=== PATIENT | male | born 1975 | race Caucasian/White ===

== ENCOUNTER 2022-03-23 19:36 | Emergency (ER) | payer BC, SELFPAY ==
[2022-03-23 20:06] VITALS: BP 134/78; PULSE 93; RESP 16; TEMP 37.7; O2SAT 98; BMI 29.6
--- NOTE | 2022-03-23 20:18 | XR_ITS ---
Patient: JARETH GOVEA Facility:?[facility] Patient ID:?[id number] Site Patient ID:?[id number]. Site :?[id number] Study:?XRay-Chest PORTABLE-03/23/2022 8:51:57 PM Ordering Physician:Haritha Davis Final Report: INDICATION: Fever and chills. TECHNIQUE: Sitting portable portable AP image of the chest. COMPARISON: 02/22/2021. FINDINGS: No significant change in comparison to the previous exam. Lungs and pleural spaces clear. Heart, mediastinum, and pulmonary vessels within normal limits. No significant bony abnormality. IMPRESSION: No significant change. No active disease. Dictated by Darin Bhat MD @ 03/23/2022 9:20:03 PM Signed by:?Darin Bhat MD @03/23/2022 9:20:03 PM (Electronic Signature)
--- NOTE | 2022-03-23 20:23 | ED.GENADULT ---
HPI - General Adult General Time Seen by Provider: 19:55 Date Seen: 03/23/22 Chief complaint: Cough Stated complaint: Fever, cough, possible sepsis Time Seen by Provider: 03/23/22 19:45 Source: patient and family Mode of arrival: ambulatory Limitations: no limitations History of Present Illness HPI narrative: Patient presents today with concern for chills, body aches, and some confusion. Symptoms started 2 days ago. He has had alternating chills and subjective fever, with occasional sweats. Decreased appetite. No nasal congestion, started having a slight cough today. No chest pain or shortness of breath. No abdominal pain. Had not had a bowel movement for couple of days but did have a bowel movement today which was normal, no diarrhea. Decreased urine output although initially when he started feeling poorly he said he got up 3 times during the night and had large volume output. No increased thirst. Fatigued and slept most of today. Also notes that 2 days ago when he was starting to get sick, he had an episode after work where he fell asleep in his truck while parked. called him and woke him up and he was confused, did not know that he was still working thought he was at home. He has not been taking anything for his symptoms. He did have COVID about 8 months ago, he is not vaccinated. And also known kidney stones. Related Data Previous Rx's Medication Instructions Recorded cefdinir 300 mg capsule 300 mg PO BID 10 days #20 caps 03/23/22 Allergies Allergy/AdvReac Type Severity Reaction Status Date / Time No Known Allergies Allergy Verified 03/23/22 20:13 Review of Systems Status of ROS: Reports: 10 or more systems reviewed and unremarkable except as noted in History and below PFSH [facility] Social History Smoking Status: Never smoker Do you use any of these nicotine containing products: None Second hand tobacco smoke exposure: No How often do you have a drink containing alcohol: never How often do you have six or more drinks on one occasion: Never AUDIT-C Alcohol total score: 0 Non-prescribed substance use: denies use service: No Exam Const: Vital Signs, click to edit/add: Vital Signs - 24 hr 03/23/22 20:06 Temperature 99.8 F H Pulse Rate [Right Pulse Oximeter] 93 Respiratory Rate 16 Blood Pressure [Ri ght Upper Arm] 134/78 Pulse Oximetry 98 Oxygen Delivery Me thod Room Air Documenting provider has reviewed patient's vital signs: yes Common normals: no apparent distress, oriented x3, alert and well nourished HENMT: Common normals: normocephalic, head/scalp atraumatic, external ears normal and external nose normal Head and scalp: normocephalic and atraumatic Nose: external nose normal External ear: external ears normal Eye: Common normals: PERRL and conjunctivae normal Conjunctiva: conjunctiva(e) normal Pupil: PERRL Neck & C-Spine: Common normals: full ROM, no lymphadenopathy and supple Chest: Common normals: palpation of chest normal Resp: Common normals: normal respiratory effort Other: Crackles in the right base Cardio: Common normals: regular rate, regular rhythm and no murmurs Rate: regular rate Rhythm: regular rhythm GI: Common normals: Normal to inspection, nondistended, normoactive bowel sounds present, soft to palpation and non-tender Palpation: soft : Common normals: no CVA tenderness Bladder/kidney exam: no CVA tenderness Back & Pelvis: Common normals: no CVA tenderness and thoracic and lumbar spine normal to inspection Extremity: Common normals: normal to inspection, full ROM and no pedal edema Neuro: Common normals: oriented x3, CN's II-XII intact bilaterally and no focal motor deficits Sensorium/orientation: alert Psych: Common normals: mental status grossly normal Skin: Common normals: no rashes or lesions noted General skin exam: no rashes or lesions noted Course Course Hospital Course: Patient seen and examined, prior reviewed. Differential diagnosis includes limited to influenza, upper respiratory infection, pneumonia, COVID infection, urinary tract infection, bacteremia, sepsis. Patient presents with intermittent fevers and chills, sweats, fatigue, and slight cough. On exam here he is afebrile, not tachycardic or hypotensive, sepsis is not clinically likely. He does have some trace crackles in the right lung and given cluster symptoms, pneumonia is certainly a possibility. Also consider COVID although he had this about 9 months ago, he is not vaccinated. Influenza a is not currently been seeing community wide but certainly is a possibility. Given urinary symptoms, urinary tract infection is possible although he really just had frequency at the beginning of this and has since had decreased urine output. Urinalysis is ordered. Given his episode of altered mentation, urine drug screen is ordered although most likely this was related to illness and not ingestion. IV fluids are ordered and will continue to monitor closely. Patient does have a history of kidney stones but has no flank pain or hematuria noted today. Reevaluation(s) Reevaluation #1: CBC with normal white blood cell count, slight left shift. Lactate is normal. Urinalysis concentrated with trace ketones, 3+ blood, as well some bilirubin. LFTs are pending as is chest x-ray. Time: 21:18 Reevaluation #2: Urinalysis consistent with infection. Renal function is reassuring, chest x-ray is negative. Patient will be started on Rocephin in the emergency department and Omnicef for home pending urine cultures. No prior for cultures for comparison. Patient was rechecked and we discussed diagnosis and plan. Confirmed that patient has no flank pain, no symptoms consistent with his kidney stone. Infected kidney stone with pyelonephritis or obstruction is unlikely. Time: 21:25 Vital Signs Vital signs: Initial Vital Signs Temperature 99.8 F H 03/23/22 20:06 Temperature Source Temporal Artery Scan 03/23/22 20:06 Pulse Rate 93 03/23/22 20:06 Pulse Rhythm 03/23/22 20:06 Pulse Strength 3+ Normal 03/23/22 20:06 Respiratory Rate 16 03/23/22 20:06 Blood Pressure 134/78 03/23/22 20:06 Blood Pressure Mean 96 03/23/22 20:06 Blood Pressure Position Supine 03/23/22 20:06 Pulse Oximetry 98 03/23/22 20:06 Oxygen Delivery Method 03/23/22 20:06 Vital Signs Temperature 99.8 F H 03/23/22 20:06 Pulse Rate 93 03/23/22 20:06 Respiratory Rate 16 03/23/22 20:06 Blood Pressure 134/78 03/23/22 20:06 Pulse Oximetry 98 03/23/22 20:06 Oxygen Delivery Method 03/23/22 20:06 Temperature 99.8 F H 03/23/22 20:06 Pulse Rate 93 03/23/22 20:06 Respiratory Rate 16 03/23/22 20:06 Blood Pressure 134/78 03/23/22 20:06 Pulse Oximetry 98 03/23/22 20:06 Oxygen Delivery Method 03/23/22 20:06 Medical Decision Making Medical Records Medical records reviewed: Yes I reviewed the patient's medical records Lab Data Lab results reviewed: Yes I reviewed the patient's lab results Labs: Lab Results 03/23/22 03/23/22 03/23/22 Range/Units 20:23 20:23 20:23 WBC 10.71 (4.50-11.00) K/uL RBC 4.85 (4.30-5.90) m/uL Hgb 14.4 (13.5-17.5) gm/dL Hct 43.6 (37.0-53.0) % MCV 90 (80-100) fL MCH 30 (26-34) pg MCHC 33 (32-36) gm/dL RDW Coeff of Suzanne 14.4 (11.5-15.5) % Plt Count 189 (140-440) K/uL Neut % (Auto) 77.8 H (42.0-72.0) % Lymph % (Auto) 12.3 L (20-44) % [place]pson % (Auto) 8.9 (0.0-11.0) % Eos % (Auto) 0.6 (0.0-7.0) % Baso % (Auto) 0.1 (0.0-3.0) % Neut # (Auto) 8.30 H (1.7-7.0) K/uL Lymph # (Auto) 1.30 (0.90-2.90) K/uL Upson # (Auto) 1.00 H (0.00-0.90) K/UL Eos # (Auto) 0.06 (0.00-0.50) K/uL Baso # (Auto) 0.01 (0.00-0.30) K/uL Abs Immat Gran (auto) 0.03 (0.00-0.30) K/uL Sodium 137 (135-149) mmol/L Potassium 4.3 (3.6-5.1) mmol/L Chloride 102 (96-114) mmol/L Carbon Dioxide 29 (20-32) mmol/L BUN 17 (5-24) mg/dL Creatinine 1.1 (0.5-1.5) mg/dL Estimated Creat Clear 80.32 Estimated GFR 83 ml/min Glucose 101 (60-115) mg/dL Lactate (0.5-1.9) mmol/L Calcium 8.2 L (8.4-10.6) mg/dL Total Bilirubin (0.1-1.5) mg/dL Direct Bilirubin (0.0-0.5) mg/dL AST (12-35) U/L ALT (4-50) U/L Alkaline Phosphatase (40-150) U/L Total Protein (6.0-8.3) g/dL Albumin (3.3-5.0) g/dL Urine Color Dark Yellow (Yellow) Urine Appearance Clear (Clear) Urine pH 6.0 (5.0-8.5) Ur Specific [place] >= 1.030 (1.000-1.030) Urine Protein 2+ A (Negative) Urine Glucose (UA) Negative (Negative) Urine Ketones Trace A (Negative) Urine Blood 3+ A (Negative) Urine Nitrite Negative (Negative) Urine Bilirubin 1+ A (Negative) Urine Urobilinogen 0.2 (0.2-1.0) Ur Leukocyte Esterase 1+ A (Negative) Urine RBC 25-50 A (0-2) Urine WBC >100 A (0-5) Ur Squamous Epith Cells None (None-Few) Amorphous Sediment Few A (None) Urine Bacteria Few A (None) Urine Opiates Screen (Negative) Ur Oxycodone Screen (Negative) Urine Methadone Screen (Negative) Ur Propoxyphene Screen (Negative) Ur Barbiturates Screen (Negative) U Tricyclic Antidepress (Negative) Ur Phencyclidine Scrn (Negative) Ur Amphetamines Screen (Negative) U Methamphetamines Scrn (Negative) U Benzodiazepines Scrn (Negative) Urine Cocaine Screen (Negative) U Marijuana (THC) Screen (Negative) Ur Drug Screen Comment 03/23/22 03/23/22 03/23/22 Range/Units 20:23 20:23 20:23 WBC (4.50-11.00) K/uL RBC (4.30-5.90) m/uL Hgb (13.5-17.5) gm/dL Hct (37.0-53.0) % MCV (80-100) fL MCH (26-34) pg MCHC (32-36) gm/dL RDW Coeff of Suzanne (11.5-15.5) % Plt Count (140-440) K/uL Neut % (Auto) (42.0-72.0) % Lymph % (Auto) (20-44) % Upson % (Auto) (0.0-11.0) % Eos % (Auto) (0.0-7.0) % Baso % (Auto) (0.0-3.0) % Neut # (Auto) (1.7-7.0) K/uL Lymph # (Auto) (0.90-2.90) K/uL [place] # (Auto) (0.00-0.90) K/UL Eos # (Auto) (0.00-0.50) K/uL Baso # (Auto) (0.00-0.30) K/uL Abs Immat Gran (auto) (0.00-0.30) K/uL Sodium (135-149) mmol/L Potassium (3.6-5.1) mmol/L Chloride (96-114) mmol/L Carbon Dioxide (20-32) mmol/L BUN (5-24) mg/dL Creatinine (0.5-1.5) mg/dL Estimated Creat Clear Estimated GFR ml/min Glucose (60-115) mg/dL Lactate 1.0 (0.5-1.9) mmol/L Calcium (8.4-10.6) mg/dL Total Bilirubin 1.0 (0.1-1.5) mg/dL Direct Bilirubin 0.3 (0.0-0.5) mg/dL AST 42 H (12-35) U/L ALT 29 (4-50) U/L Alkaline Phosphatase 86 (40-150) U/L Total Protein 7.4 (6.0-8.3) g/dL Albumin 3.7 (3.3-5.0) g/dL Urine Color (Yellow) Urine Appearance (Clear) Urine pH (5.0-8.5) Ur Specific [place] (1.000-1.030) Urine Protein (Negative) Urine Glucose (UA) (Negative) Urine Ketones (Negative) Urine Blood (Negative) Urine Nitrite (Negative) Urine Bilirubin (Negative) Urine Urobilinogen (0.2-1.0) Ur Leukocyte Esterase (Negative) Urine RBC (0-2) Urine WBC (0-5) Ur Squamous Epith Cells (None-Few) Amorphous Sediment (None) Urine Bacteria (None) Urine Opiates Screen Negative (Negative) Ur Oxycodone Screen Negative (Negative) Urine Methadone Screen Negative (Negative) Ur Propoxyphene Screen Negative (Negative) Ur Barbiturates Screen Negative (Negative) U Tricyclic Antidepress Negative (Negative) Ur Phencyclidine Scrn Negative (Negative) Ur Amphetamines Screen Negative (Negative) U Methamphetamines Scrn Negative (Negative) U Benzodiazepines Scrn Negative (Negative) Urine Cocaine Screen Negative (Negative) U Marijuana (THC) Screen Negative (Negative) Ur Drug Screen Comment See Note Imaging Data Chest x-ray: Attestation: I have reviewed the pertinent imaging results. My impression: Negative Radiologist's impression: Negative Discharge Plan Discharge Clinical Impression: Acute pyelonephritis Condition: Improved Instructions: Urinary Tract Infection in Men (DC) Additional Instructions: Make sure you are drinking plenty of fluids. Take Tylenol or ibuprofen as needed for pain or fever. Start antibiotics tomorrow. Follow-up with primary care next week. Activity Level: No Restrictions Discharge Diet: Regular Prescriptions: New cefdinir 300 mg capsule 300 mg PO BID 10 Days Qty: 20 0RF Stand Alone Forms: [email or web address] Info Instructions
[2022-03-23 20:55] LABS: Appearance Urine Clear (Clear); Bilirubin Urine 1+ (Negative); Blood Urine 3+ (Negative); Glucose Urine Negative (Negative); Ketones Urine Trace (Negative); Leukocyte Esterase Urine 1+ (Negative); Nitrite Urine Negative (Negative); Protein Urine 2+ (Negative); Specific Gravity Urine >= 1.030 (1.000-1.030); Urobilinogen Urine 0.2 (0.2-1.0)
[2022-03-23 21:02] LABS: Amphetamine Screen Urine Negative (Negative); Barbiturate Screen Urine Negative (Negative); Benzodiazepines Screen Urine Negative (Negative); Cannabinoid Screen Urine Negative (Negative); Cocaine Screen Urine Negative (Negative); Methadone Screen Urine Negative (Negative); Methamphetamines Screen Urine Negative (Negative); Opiate Screen Urine Negative (Negative); Oxycodone Screen Urine Negative (Negative); Phencyclidine Screen Urine Negative (Negative); Tricyclic Antidepressant Urine Negative (Negative)
[2022-03-23 21:05] LABS: Basophils Absolute Auto 0.01 K/uL (0.00-0.30); Basophils Percent Auto 0.1 % (0.0-3.0); Eosinophils Absolute Auto 0.06 K/uL (0.00-0.50); Eosinophils Percent Auto 0.6 % (0.0-7.0); Hematocrit 43.6 % (37.0-53.0); Hemoglobin* 14.4 gm/dL (13.5-17.5); Immature Granulocytes Abs Auto 0.03 K/uL (0.00-0.30); Lymphocytes Percent Auto 12.3 % (20-44); Mean Corpuscular HGB Conc 33 gm/dL (32-36); Mean Corpuscular Hemoglobin 30 pg (26-34); Mean Corpuscular Volume 90 fL (80-100); Monocytes Percent Auto 8.9 % (0.0-11.0); Neutrophils Percent Auto 77.8 % (42.0-72.0); Platelet Count* 189 K/uL (140-440); RDW Coefficient of Variation % 14.4 % (11.5-15.5); Red Blood Count 4.85 m/uL (4.30-5.90); White Blood Count* 10.71 K/uL (4.50-11.00)
[2022-03-23 21:07] LABS: Slide Review Reflex No
[2022-03-23 21:11] LABS: Color Urine Dark Yellow (Yellow)
[2022-03-23 21:16] LABS: Albumin* 3.7 g/dL (3.3-5.0)
[2022-03-23 21:17] LABS: Bacteria Urine Few; Chloride* 102 mmol/L (96-114); Potassium* 4.3 mmol/L (3.6-5.1); RBC Urine 25-50 (0-2); Sodium* 137 mmol/L (135-149); WBC Urine >100 (0-5)
[2022-03-23 21:18] LABS: Amorphous Sediment Urine Few
[2022-03-23 21:19] LABS: Alkaline Phosphatase* 86 U/L (40-150); Aspartate Amino Transferase* 42 U/L (12-35); Bilirubin Direct* 0.3 mg/dL (0.0-0.5); Total Protein* 7.4 g/dL (6.0-8.3)
[2022-03-23 21:20] LABS: Alanine Aminotransferase* 29 U/L (4-50); Carbon Dioxide* 29 mmol/L (20-32); Creatinine* 1.1 mg/dL (0.5-1.5); Est. Creatinine Clearance* 80.32; Estimated Glomerular Filt Rate 83 ml/min
[2022-03-23 21:21] LABS: Blood Urea Nitrogen* 17 mg/dL (5-24); Calcium* 8.2 mg/dL (8.4-10.6); Glucose* 101 mg/dL (60-115)
[2022-03-23] MEDS: ACETAMINOPHEN 325 MG TABLET 650 MG PO (21:29)
[2022-03-23] MEDS: 0.9 % SODIUM CHLORIDE 1000 ml 1,000 ML IV (21:29)
[2022-03-23 21:33] LABS: PCR FLU A Negative PCR FLU A (Negative); PCR FLU B Negative PCR FLU B (Negative)
[2022-03-23 21:35] VITALS: BP 98/69; PULSE 83; RESP 16; O2SAT 97
[2022-03-23 21:35] LABS: SARS PCR* Negative SARS-CoV-2 (Negative)
[2022-03-23] MEDS: cefTRIAXone 1 GM in 0.9 % SODIUM CHLORIDE Mini-bag 100 ML IVPB (21:35)
[2022-03-23 22:00] VITALS: BP 100/68; PULSE 86; RESP 16; O2SAT 96
[2022-03-23 22:30] VITALS: BP 94/64; PULSE 84; RESP 16; O2SAT 93
== END 2022-03-23 23:00 | disposition home or self-care (01) ==
PROVIDERS: Emergency Provider Family Medicine
DX: N10 Acute pyelonephritis (principal)
CPT/HCPCS: 36415; 71045; 80048; 80076; 80306; 81001; 83605; 85025; 87086; 87502; 87635; 96365; 99284; A9270; J0696; J7030

== ENCOUNTER 2022-09-09 12:01 | Emergency (ER) | payer BC, SELFPAY ==
[2022-09-09 12:12] VITALS: BP 115/72; PULSE 102; RESP 16; TEMP 36.9; O2SAT 97; BMI 29.6
[2022-09-09 12:14] LABS: Appearance Urine Slightly Cloudy (Clear); Bilirubin Urine 2+ (Negative); Blood Urine 3+ (Negative); Color Urine Amber (Yellow); Glucose Urine Negative (Negative); Ketones Urine Trace (Negative); Leukocyte Esterase Urine 1+ (Negative); Nitrite Urine Positive (Negative); Protein Urine 3+ (Negative); Specific Gravity Urine >= 1.030 (1.000-1.030); pH Urine 5.5 (5.0-8.5)
[2022-09-09 12:56] LABS: Bacteria Urine Moderate; Mucus Urine Few; Squamous Epithelial Cell Urine Few (None-Few); WBC Urine 25-50 (0-5)
[2022-09-09] MEDS: 0.9 % SODIUM CHLORIDE 1000 ml 1,000 ML IV (13:03)
[2022-09-09 13:12] LABS: HCO3 VBG 31 mmol/L (21-28); Lactate* 1.3 mmol/L (0.5-1.9); PCO2 VBG 48 mmHG (40-50); PO2 VBG 23.8 mmHG (25-47); pH VBG 7.412 (7.32-7.43)
[2022-09-09 13:15] LABS: Basophils Percent Auto 0.1 % (0.0-3.0); Eosinophils Percent Auto 0.1 % (0.0-7.0); Hematocrit 45.9 % (37.0-53.0); Hemoglobin* 15.6 gm/dL (13.5-17.5); Immature Granulocytes Pct Auto 0.2 %; Lymphocytes Percent Auto 8.1 % (20-44); Mean Corpuscular HGB Conc 34 gm/dL (32-36); Mean Corpuscular Hemoglobin 30 pg (26-34); Mean Corpuscular Volume 89 fL (80-100); Monocytes Percent Auto 5.4 % (0.0-11.0); Neutrophils Percent Auto 86.1 % (42.0-72.0); Platelet Count* 198 K/uL (140-440); RDW Coefficient of Variation % 13.8 % (11.5-15.5); Red Blood Count 5.17 m/uL (4.30-5.90); White Blood Count* 15.23 K/uL (4.50-11.00)
[2022-09-09 13:25] LABS: Slide Review Reflex No
[2022-09-09 13:28] LABS: Albumin* 4.1 g/dL (3.3-5.0); Chloride* 103 mmol/L (96-114); Sodium* 138 mmol/L (135-149)
[2022-09-09 13:29] LABS: Potassium* 3.8 mmol/L (3.6-5.1)
[2022-09-09 13:30] LABS: Est. Creatinine Clearance* 88.35; Estimated Glomerular Filt Rate 93 ml/min
[2022-09-09 13:31] LABS: Alanine Aminotransferase* 16 U/L (4-50); Alkaline Phosphatase* 85 U/L (40-150); Aspartate Amino Transferase* 17 U/L (12-35); Bilirubin Direct* 0.1 mg/dL (0.0-0.5); Bilirubin Total* 1.2 mg/dL (0.1-1.5); Blood Urea Nitrogen* 15 mg/dL (5-24); Carbon Dioxide* 29 mmol/L (20-32); Glucose* 103 mg/dL (60-115); Total Protein* 7.8 g/dL (6.0-8.3)
[2022-09-09 13:32] LABS: Calcium* 8.7 mg/dL (8.4-10.6)
--- NOTE | 2022-09-09 13:37 | CRLHL7_ITS ---
For Patients: As a result of the Century Cures Act, medical imaging exams and procedure reports are released immediately into your electronic medical record. You may view this report before your referring provider. If you have questions, please contact your health care provider. Indication: UTI, fever, history of kidney stones Technique: Volumetric multidetector CT images of the abdomen and pelvis were without the administration of intravenous contrast. Comparison: None available. Findings: The lung bases are clear. The liver is normal in attenuation without intrahepatic biliary ductal dilatation. The gallbladder is unremarkable without evidence of radiopaque calculus. There is no significant common biliary ductal dilatation or abrupt cut off. The spleen is normal in attenuation and size. The stomach and duodenum are grossly unremarkable. The pancreas is normal in attenuation without significant atrophy. The adrenal glands are unremarkable. There are nonobstructive calculi within the superior right collecting system. No evidence of hydronephrosis or distal obstructive calculus. There is no evidence of radiopaque calculus or hydronephrosis. There is moderate stool seen throughout the colon with distal colonic diverticulosis without definite evidence of diverticulitis. The appendix is unremarkable. There is no significant mesenteric, retroperitoneal, or pelvic sidewall lymph nodes. The aorta is nonaneurysmal. There is no significant atherosclerotic disease appreciated. There is minimal nonspecific thickening of the bladder with pericystic inflammatory changes which may represent mild cystitis. There is a prominent prostate gland. There is no free fluid or free air. The anterior abdominal wall is intact without significant hernias. The lumbar vertebral body heights are grossly maintained with mild multi-level degenerative disc disease. There is moderate multilevel degenerative facet arthrosis. Impression: No evidence of distal obstructive radiopaque calculus with minimal proximal calculi in the collecting system. Nonspecific inflammatory changes of the bladder with thickening of the bladder wall which could represent mild cystitis. No other acute intra-abdominal abnormalities are appreciated. Please note that all CT scans at this facility use dose modulation, iterative reconstruction, and/or weight-based dosing when appropriate to reduce radiation dose to as low as reasonably achievable. Dictated by Esvin Newton MD @ 09/09/2022 2:54:16 PM (Electronically Signed)
--- NOTE | 2022-09-09 13:39 | ED_ITS ---
HPI - General Adult General Date Seen: 09/09/22 Chief complaint: Urogenital Problems, Male Stated complaint: Blood in urine, likely infection, fever Time Seen by Provider: 09/09/22 12:03 Source: patient Mode of arrival: ambulatory Limitations: no limitations History of Present Illness HPI narrative: Patient is a 47-year-old male who presents with concerns about possible sepsis. He says that on the way home from [facility] [employer] on Friday, 2 days ago, he had sudden onset of shaking chills. On arrival home, he says his checked his temperature and it was 102.6. Since then, on and off he believes he has had a fever although they have not checked his temperature again. He has developed dysuria as well as frequency and urgency. He has not had significant flank pain although he has had some pain in his right hip which he attributes to sleeping on it wrong. He is not having any trouble moving the joint itself. Says since Friday he is really just laid around in bed. He feels somewhat better today but is still not feeling well and still has burning with urination. He has not had any vomiting although he has felt nauseated at times. No diarrhea. He does have a history of UTI in the past, has a history of multiple kidney stones up to 7 mm in size. He says he had sepsis a couple of years ago. He does smoke cigarettes, denies alcohol use, denies any substance use otherwise. He denies any respiratory symptoms, sore throat, rashes, or other symptoms. Related Data Previous Rx's Medication Instructions Recorded cefdinir 300 mg capsule 300 mg PO BID 10 days #20 caps 03/23/22 ciprofloxacin HCl 500 mg tablet 500 mg PO BID #42 tabs 09/09/22 Allergies Allergy/AdvReac Type Severity Reaction Status Date / Time No Known Allergies Allergy Verified 03/23/22 20:13 Review of Systems Status of ROS: Reports: 10 or more systems reviewed and unremarkable except as noted in History and below [facility] Social History Smoking Status: Current every day smoker What tobacco products do you use: cigarettes Do you use any of these nicotine containing products: None Second hand tobacco smoke exposure: No How often do you have a drink containing alcohol: monthly or less How many standard drinks containing alcohol do you have on a typical day: 1 or 2 How often do you have six or more drinks on one occasion: Never AUDIT-C Alcohol total score: 1 Non-prescribed substance use: denies use service: No Exam Narrative: Exam Narrative: Vital signs as noted above. In general, an alert, well-appearing patient. Head: Normocephalic, atraumatic. Eyes: Pupils are equal reactive. Extraocular movements are full. Conjunctivae are normal. ENT: Mucous membranes are moist. Throat is normal. Neck: Supple without lymphadenopathy. Heart: Regular rate and rhythm. No murmur or rub. Lungs: Clear bilaterally. No increased work of breathing, crackles or wheezes. Abdomen: Soft and nontender. No organomegaly. Extremities: Well perfused. No edema. No calf tenderness. Pulses intact. Neurologic: Patient is alert and oriented to person and place. Speech is fluent. Face is symmetric. Moves all extremities equally. Affect: Normal. Skin: Warm and dry. Well perfused. Const: Vital Signs, click to edit/add: Vital Signs - 24 hr 09/09/22 12:12 09/09/22 14:28 Temperature 98.4 F Pulse Rate [Pulse Oximeter] 102 H 83 Respiratory Rate 16 16 Blood Pressure [Ri t Upper Arm] 115/72 110/74 Pulse Oximetry 97 98 Oxygen Delivery Me thod Room Air Room Air Course Course Hospital Course: Following initial evaluation, patient had an IV established, was given a L of normal saline, blood cultures and urine culture were obtained. Urinalysis is notable for positive nitrites, 2-5 red cells and 25-50 white cells. Serum white blood cell count is elevated at 15.2, hemoglobin is normal. Left shift with 86% neutrophils. Venous gas shows normal pH of 7.4. PCO2 is normal, bicarb mildly elevated at 31. Lactate is normal at 1.3. Metabolic panel is normal, BUN is 15, creatinine is 1. LFTs are normal. CRP significantly elevated at 25. TSH is normal. Overall, my suspicion of sepsis is relatively low, blood pressure is normal, pulses normalized to 83, initially was only minimally elevated at 102. He is not febrile here, nontoxic in appearance. Lactate is normal. He did have a L of normal saline, based on the urinalysis and elevated white blood cell count I did give him Rocephin here. I elected to do a CT scan just to rule out the possibility of an obstructive kidney stone. By my review this was negative. Final radiology report is as follows: Impression: No evidence of distal obstructive radiopaque calculus with minimal proximal calculi in the collecting system. Nonspecific inflammatory changes of the bladder with thickening of the bladder wall which could represent mild cystitis. No other acute intra-abdominal abnormalities are appreciated. Patient has had several he UTIs in the past couple of years, little bit unusual for a middle-aged male. He says that he is not aware of any underlying prostatic problems, although he says that he was on Flomax for a while after a kidney stone notes that he felt improved while on Flomax, felt that he had better urine flow etcetera. I do wonder if his UTI symptoms are more manifestation of prostatitis, and I think with 3 episodes in the past couple of years that it would be reasonable to treat him with a longer course of antibiotics. I have asked him to follow up with primary care after completion of his antibiotics for reassessment. He currently does not have a clinic that he goes to, so I have asked him to establish an appointment with someone in the [place] area. If he has any worsening symptoms in the next couple of days such as persistent high fevers, weakness, vomiting, shaking chills etcetera, return to the emergency department. Blood and urine cultures are pending. Vital Signs Vital signs: Initial Vital Signs Temperature 98.4 F 09/09/22 12:12 Temperature Source Temporal Artery Scan 09/09/22 12:12 Pulse Rate 102 H 09/09/22 12:12 Pulse Rhythm 09/09/22 12:12 Pulse Strength 3+ Normal 09/09/22 12:12 Respiratory Rate 16 09/09/22 12:12 Blood Pressure 115/72 09/09/22 12:12 Blood Pressure Mean 86 09/09/22 12:12 Pulse Oximetry 97 09/09/22 12:12 Oxygen Delivery Method 09/09/22 12:12 Vital Signs Temperature 98.4 F 09/09/22 12:12 Pulse Rate 102 H 09/09/22 12:12 Respiratory Rate 16 09/09/22 12:12 Blood Pressure 115/72 09/09/22 12:12 Pulse Oximetry 97 09/09/22 12:12 Oxygen Delivery Method 09/09/22 12:12 Temperature 98.4 F 09/09/22 12:12 Pulse Rate 83 09/09/22 14:28 Respiratory Rate 16 09/09/22 14:28 Blood Pressure 110/74 09/09/22 14:28 Pulse Oximetry 98 09/09/22 14:28 Oxygen Delivery Method 09/09/22 14:28 Medical Decision Making Lab Data Labs: Lab Results 09/09/22 09/09/22 09/09/22 Range/Units 12:07 13:05 13:05 WBC 15.23 H (4.50-11.00) K/uL RBC 5.17 (4.30-5.90) m/uL Hgb 15.6 (13.5-17.5) gm/dL Hct 45.9 (37.0-53.0) % MCV 89 (80-100) fL MCH 30 (26-34) pg MCHC 34 (32-36) gm/dL RDW Coeff of Suzanne 13.8 (11.5-15.5) % Plt Count 198 (140-440) K/uL Neut % (Auto) 86.1 H (42.0-72.0) % Lymph % (Auto) 8.1 L (20-44) % Hartley % (Auto) 5.4 (0.0-11.0) % Eos % (Auto) 0.1 (0.0-7.0) % Baso % (Auto) 0.1 (0.0-3.0) % Neut # (Auto) 13.10 H (1.7-7.0) K/uL Lymph # (Auto) 1.20 (0.90-2.90) K/uL Hartley # (Auto) 0.80 (0.00-0.90) K/UL Eos # (Auto) 0.00 (0.00-0.50) K/uL Baso # (Auto) 0.00 (0.00-0.30) K/uL VBG pH (7.32-7.43) VBG pCO2 (40-50) mmHG VBG pO2 (25-47) mmHG VBG HCO3 (21-28) mmol/L Sodium 138 (135-149) mmol/L Potassium 3.8 (3.6-5.1) mmol/L Chloride 103 (96-114) mmol/L Carbon Dioxide 29 (20-32) mmol/L BUN 15 (5-24) mg/dL Creatinine 1.0 (0.5-1.5) mg/dL Estimated Creat Clear 88.35 Estimated GFR 93 ml/min Glucose 103 (60-115) mg/dL Lactate (0.5-1.9) mmol/L Calcium 8.7 (8.4-10.6) mg/dL Total Bilirubin 1.2 (0.1-1.5) mg/dL Direct Bilirubin 0.1 (0.0-0.5) mg/dL AST 17 (12-35) U/L ALT 16 (4-50) U/L Alkaline Phosphatase 85 (40-150) U/L C-Reactive Protein 25.6 H (0.5-1.0) mg/dL Total Protein 7.8 (6.0-8.3) g/dL Albumin 4.1 (3.3-5.0) g/dL TSH (0.270-4.200) uIU/mL Urine Color Chitra A (Yellow) Urine Appearance Slightly Cloudy A (Clear) Urine pH 5.5 (5.0-8.5) Ur Specific [place] >= 1.030 (1.000-1.030) Urine Protein 3+ A (Negative) Urine Glucose (UA) Negative (Negative) Urine Ketones Trace A (Negative) Urine Blood 3+ A (Negative) Urine Nitrite Positive A (Negative) Urine Bilirubin 2+ A (Negative) Urine Urobilinogen 1.0 (0.2-1.0) Ur Leukocyte Esterase 1+ A (Negative) Urine RBC 2-5 A (0-2) Urine WBC 25-50 A (0-5) Ur Squamous Epith Cells Few (None-Few) Urine Bacteria Moderate A (None) Urine Mucus Few A (None) 09/09/22 09/09/22 Range/Units 13:05 13:05 WBC (4.50-11.00) K/uL RBC (4.30-5.90) m/uL Hgb (13.5-17.5) gm/dL Hct (37.0-53.0) % MCV (80-100) fL MCH (26-34) pg MCHC (32-36) gm/dL RDW Coeff of Suzanne (11.5-15.5) % Plt Count (140-440) K/uL Neut % (Auto) (42.0-72.0) % Lymph % (Auto) (20-44) % Hartley % (Auto) (0.0-11.0) % Eos % (Auto) (0.0-7.0) % Baso % (Auto) (0.0-3.0) % Neut # (Auto) (1.7-7.0) K/uL Lymph # (Auto) (0.90-2.90) K/uL Hartley # (Auto) (0.00-0.90) K/UL Eos # (Auto) (0.00-0.50) K/uL Baso # (Auto) (0.00-0.30) K/uL VBG pH 7.412 (7.32-7.43) VBG pCO2 48 (40-50) mmHG VBG pO2 23.8 L (25-47) mmHG VBG HCO3 31 H (21-28) mmol/L Sodium (135-149) mmol/L Potassium (3.6-5.1) mmol/L Chloride (96-114) mmol/L Carbon Dioxide (20-32) mmol/L BUN (5-24) mg/dL Creatinine (0.5-1.5) mg/dL Estimated Creat Clear Estimated GFR ml/min Glucose (60-115) mg/dL Lactate 1.3 (0.5-1.9) mmol/L Calcium (8.4-10.6) mg/dL Total Bilirubin (0.1-1.5) mg/dL Direct Bilirubin (0.0-0.5) mg/dL AST (12-35) U/L ALT (4-50) U/L Alkaline Phosphatase (40-150) U/L C-Reactive Protein (0.5-1.0) mg/dL Total Protein (6.0-8.3) g/dL Albumin (3.3-5.0) g/dL TSH 2.040 (0.270-4.200) uIU/mL Urine Color (Yellow) Urine Appearance (Clear) Urine pH (5.0-8.5) Ur Specific [place] (1.000-1.030) Urine Protein (Negative) Urine Glucose (UA) (Negative) Urine Ketones (Negative) Urine Blood (Negative) Urine Nitrite (Negative) Urine Bilirubin (Negative) Urine Urobilinogen (0.2-1.0) Ur Leukocyte Esterase (Negative) Urine RBC (0-2) Urine WBC (0-5) Ur Squamous Epith Cells (None-Few) Urine Bacteria (None) Urine Mucus (None) Discharge Plan Discharge Clinical Impression: Urinary tract infection, Prostatitis Patient Disposition: Home, Self-Care Condition: Improved Instructions: Urinary Tract Infection in Men (DC) Additional Instructions: Ciprofloxacin antibiotic as prescribed. Return for persistent high fevers, weakness, vomiting, or other worsening. Prescriptions: New ciprofloxacin HCl 500 mg tablet 500 mg PO BID Qty: 42 0RF No Action cefdinir 300 mg capsule 300 mg PO BID 10 Days Qty: 20 0RF Follow Up/Referrals: Provider,Not a Local [Primary Care Provider] - Stand Alone Forms: [email or web address] Info Instructions
[2022-09-09] MEDS: cefTRIAXone 1 GM in 0.9 % SODIUM CHLORIDE Mini-bag 100 ML IVPB (13:57)
[2022-09-09 14:14] LABS: C Reactive Protein* 25.6 mg/dL (0.5-1.0)
[2022-09-09 14:28] VITALS: BP 110/74; PULSE 83; RESP 16; O2SAT 98
== END 2022-09-09 15:33 | disposition home or self-care (01) ==
PROVIDERS: Emergency Provider Emergency Medicine
DX: N39.0 Urinary tract infection, site not specified (principal); N41.9 Inflammatory disease of prostate, unspecified
CPT/HCPCS: 36415; 74176; 80048; 80076; 81001; 82803; 83605; 84443; 85025; 86140; 87040; 87086; 87186; 96365; 99284; J0696; J7030

== ENCOUNTER 2024-12-12 12:48 | Emergency (ER) | payer BC, SELFPAY ==
[2024-12-12] VITALS (8 sets, daily range): BP systolic 124–150; BP diastolic 81–89; PULSE 58–79; RESP 16–18; TEMP 36.7; O2SAT 92–99; BMI 29.6
--- OUTSIDE RECORDS SUMMARY | 2024-12-12 12:51 | XMS_ITS | Clinical Summary ---
Author Organization [facility] Address [address] [place] [address] Care Team Providers Care Cable Installation Technician Name Role Phone Elsewhere, Pcp Primary Care Provider Unavailabl e Source Comments Patient records contain information from all sites at [facility]. For routine questions regarding patient records, call [phone] during business hours, M-F 8:00 AM - 5:00 PM Central Time. Record requests for emergency care only can be directed to [phone] at any time.[facility] Allergies No known active allergies Medications No known medications Active Problems Problem Noted Date Diagnosed Date Pain Finger Right Encounters Date Type Department Care Team Description 09/20/2024 Clinical Communication [facility] Department of Family Medicine in [place], [place] [address] [place] [address] Meghan Lemus M.D. 09/20/2024 Orders Only [facility] of [facility] Medicine in [place], [place] [address] [place] [id number] Meghan Lemus M.D. 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 Gender Identity Not on file Sexual Orientation Not on file Last Filed Vital Signs Vital Sign Reading Time Taken Comments Blood Pressure 121/87 05/31/2024 5:00 PM CDT Pulse 78 05/31/2024 5:06 PM CDT Temperature 36.3 C (97.3 F) 04/30/2024 3:21 PM CDT Respiratory Rate 20 05/31/2024 6:02 PM CDT Oxygen Saturation 97% 05/31/2024 5:06 PM CDT Inhaled Oxygen Concentration - - Weight 84.4 kg (186 lb) 05/31/2024 3:03 PM CDT Height - - Body Mass Index - - Plan of Treatment Health Maintenance Due Date Last Done Comments CT Colonography 1975 Cologuard 1975 FIT 1975 HIV Screening 1975 Hepatitis C Screening 1975 Hepatitis B Vaccines (1 of 3 - 19+ 3-dose series) 1994 Pneumococcal vaccine (0-49 years) (1 of 2 - PCV) 1994 COVID-19 Vaccine (1 - 2023- season) 2024 Influenza Vaccine (#1) 2024 Depression Screening (Annual PHQ-2) 08/11/2024 Tobacco Cessation counseling 04/30/2025 04/30/2024 Fasting Glucose for Diabetes Screening 04/30/2027 04/30/2024, 04/30/2024, 03/17/2024, Additional history exists Lipid (Cholesterol) Screening 08/21/2028 08/21/2023, 10/16/2021 DTaP,Tdap,and Td Vaccines (2 - Td or Tdap) 08/21/2033 08/21/2023 Colonoscopy 08/28/2033 08/28/2023 Colorectal Cancer Screening 08/28/2033 IPV Vaccines Aged Out No longer eligi ble based on patient's age to complete this topic Procedures Procedure Name Priority Date/Time Associated Diagnosis Comments COMPREHENSIVE METABOLIC PANEL, S/P Routine 04/30/2024 4:02 PM CDT Nausea And Vomiting Hemoptysis from Last 3 Months or Most Recently Relevant to Health Maintenance Results * (ABNORMAL) Comprehensive Metabolic Panel (04/30/2024 4:02 PM CDT) Potassium, P 3.7 3.6 - 5.2 mmol/L 04/30/2024 4:41 PM CDT ERDG Sodium, P 141 135 - 145 mmol/L 04/30/2024 4:41 PM CDT ERDG Chloride, P 105 98 - 107 mmol/L 04/30/2024 4:41 PM CDT ERDG Bicarbonate, P 27 22 - 29 mmol/L 04/30/2024 4:41 PM CDT ERDG Anion Gap, P 9 7 - 15 04/30/2024 4:41 PM CDT ERDG BUN (Blood Urea Nitrogen), P 14 8 - 24 mg/dL 04/30/2024 4:41 PM CDT ERDG Creatinine 1.07 0.74 - 1.35 mg/dL 04/30/2024 4:41 PM CDT ERDG Estimated GFR (eGFR) 85 >=60 mL/min/BS A 04/30/2024 4:41 PM CDT ERDG Comment: Estimated GFR calculated using the 2020 CKD_EPI creatinine equation. Calcium, Total, P 8.4(L) 8.6 - 10.0 mg/dL 04/30/2024 4:41 PM CDT ERDG Glucose, P 93 70 - 140 mg/dL 04/30/2024 4:41 PM CDT ERDG Protein, Total, P 7.1 6.3 - 7.9 g/dL 04/30/2024 4:41 PM CDT ERDG Albumin, P 4.1 3.5 - 5.0 g/dL 04/30/2024 4:41 PM CDT ERDG Aspartate Aminotransferase (AST), P 11 8 - 48 U/L 04/30/2024 4:41 PM CDT ERDG Alkaline Phosphatase, P 123 40 - 129 U/L 04/30/2024 4:41 PM CDT ERDG Alanine Aminotransferase (ALT), P <5(L) 7 - 55 U/L 04/30/2024 5:20 PM CDT ERDG Bilirubin, Total, P 0.5 0.0 - 1.2 mg/dL 04/30/2024 4:41 PM CDT ERDG Blood (Blood, Venous) 04/30/2024 4:02 PM CDT 04/30/2024 4:07 PM CDT us Meghan Lemus M.D. LAB BLOOD ADD-ON Final Resu lt [facility] [address] [place] [address], [facility] in [facility] [address] [place] [address] from Last 3 Months or Most Recently Relevant to Health Maintenance Insurance [facility] Care Teams Cable Installation Technician Relationship Specialty Start Date End Date Elsewhere, Pcp PCP - General Family Medicine 11/07/17
--- OUTSIDE RECORDS SUMMARY | 2024-12-12 12:52 | XMS_ITS | Clinical Summary ---
Author Organization [facility] Address [address] [place] [address] Care Team Providers Care Lumber Kiln Operator Name Role Phone Clinician, Not Found MD Primary Care Provider Un available Source Comments You are receiving this document as you are listed as the primary care provider,follow-up provider, or the patient has been referred to you for consultation.This is in compliance with the Medicare and[facility] EHR Incentive Program,which states Providers who transition their patient to another setting of careor provider of care or refers their patient to another provider of care shouldprovide summary care record for each transition of care or referral. [facility] Allergies No known active allergies Medications No known medications Active Problems No known active problems Immunizations Immunization Administration Dates Next Due Td 09/24/2003 Family History Medical History Relation Name Comments Hypertension Father Lipids Father Deafness Sister 1 ADHD Sister 2 Relation Name Status Comments Father Sister 1 Sister 2 Social History Tobacco Use Types Packs/Day Years Used Date Smoking Tobacco: Every Day Cigarettes 1.5 37.3 Started: 08/11/1987 Smokeless Tobacco: Former Chew Alcohol Use Standard Drinks/Week Comments Yes 0 (1 standard drink = 0.6 oz pur e alcohol) occ AUDIT-C Answer Date Recorded Q1: How often do you have a drink containing alc ohol? 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 SUPERVISOR Pulse 74 07/18/2020 6:22 PM SHOE REPAIR SUPERVISOR Temperature 36.8 C (98.2 F) 07/18/2020 5:58 PM SHOE REPAIR SUPERVISOR Respiratory Rate 20 07/18/2020 6:22 PM SHOE REPAIR SUPERVISOR Oxygen Saturation 97% 07/18/2020 5:58 PM SHOE REPAIR SUPERVISOR Inhaled Oxygen Concentration - - Weight 83.9 kg (185 lb) 06/23/2020 3:30 PM SHOE REPAIR SUPERVISOR Height 172.4 cm (5' 7.87) 06/23/2020 3:30 PM CS T Body Mass Index 28.23 06/23/2020 3:30 PM SHOE REPAIR SUPERVISOR Plan of Treatment Health Maintenance Due Date Last Done Comments Colon Cancer Screening Plan Due 1975 Hep C Screening (Preventive Services) 1975 HIV Screening (Preventive Services) 1991 Adult Preventive Visit 1993 HepB Vaccine (1) 1994 Pneumococcal Vaccine (1 of 2 - PCV) 1994 DTaP/Tdap/Td Vaccine (1 - Tdap) 09/25/2003 4 Cholesterol 2010 COVID-19 Vaccine (1 - 2023-2 5 season) 2024 Zoster/Shingles Vaccine (1 of 2) 2025 Influenza Vaccine (Season Ended) 2025 HepA Vaccine Aged Out No longer eligi ble based on patient's age to complete this topic Hib Vaccine Aged Out No longer eligi ble based on patient's age to complete this topic IPV (Polio) Vaccine Aged Out No longe r eligible based on patient's age to complete this topic MCV4 Vaccine Aged Out No longer eligi ble based on patient's age to complete this topic Meningococcal B Vaccine Aged Out No l onger eligible based on patient's age to complete this topic Insurance [facility] [employer] Care Teams Lumber Kiln Operator Relationship Specialty Start Date End Date Clinician, Not Found, [place] [address] PCP - General 06/12/20
--- OUTSIDE RECORDS SUMMARY | 2024-12-12 12:52 | XMS_ITS | Clinical Summary ---
Author Organization [employer] [facility] Address [address] [place] [address] Care Team Providers Care Simulation Engineer Name Role Phone [employer] Primary Care Provider [phone] Allergies No known active allergies Medications polyethylene glycol-electrolyte (GOLYTELY) 236-22.74-6.74 -5.86 gram suspensionIndicati ons:Adenomatous polyp of colon, unspecified part of colon Drink 2 liters the day before colonoscopy and 2 liters 6 hours before colonoscopy appointment 4000 mL 08/18/19 24 Active ondansetron (ZOFRAN ODT) 4 mg disintegrating tabletIndications: Nausea and vomiting, unspecified vomiting type Place 1 Tablet (4 mg) on the tongue every 8 hours if needed for Nausea/Vomiting . 10 Tablet 03/17/20 24 Active Active Problems Problem Noted Date Diagnosed Date Peripheral sensory neuropathy 02/17/2019 Neck pain, acute 02/17/2019 Malaise and fatigue 02/17/2019 Adenomatous colon polyp 12/31/2013 Overview (09/02/2023): Colonoscopy 12/2013 polyp repeat in 5 years Colonoscopy 08/2023 3-TA, repeat in 5 years Hyperlipidemia 12/28/2013 Fatty infiltration of liver 12/28/2013 Tobacco abuse 12/20/2013 Chest pain, unspecified 06/20/2007 Pain in joint, lower leg 09/19/2006 Umbilical hernia with obstruction, without gangr christi Non-recurrent unilateral ing uinal hernia without obstruction or gangrene Immunizations Immunization Administration Dates Next Due Td (Age >=7 Years) 09/24/2003 Tdap 08/21/2023 Family History Medical History Relation Name Comments Heart Disease Brother COPD Father Hypertension Father Other Father prostate proble m of some kind Good Health Mother Unknown Mother Diabetes Paternal Grandmother Good Health Sister 1 Good Health Sister 2 Relation Name Status Comments Brother Father Mother Alive Paternal Grandmother Sister 1 Sister 2 Social History Tobacco Use Types Packs/Day Years Used Date Smoking Tobacco: Every Day Cigarettes 2 20 Smokeless Tobacco: Never Tobacco Cessation:Ready to Q uit: Not Asked; Counseling Given: Not Answered Comments:2 packs a day, cutting down Alcohol Use Standard Drinks/Week Comments Yes 0 (1 standard drink = 0.6 oz pur e alcohol) once a month PHQ-2 Answer Date Recorded PHQ-2 TOTAL SCORE 0 08/21/2023 Social Connections Answer Date Recorded Do you often feel lonely or isolated from those around you? 0 08/18/2023 Financial Resource Strain Answer Date R ecorded Difficulty of Paying Living Expenses 3 08/18/2023 Difficulty of Paying Living Expenses Not on file 08/18/2023 Food Insecurity Answer Date Recorded Do you worry your food will run out before you are able to buy more? 1 08/18/2023 Transportation Needs Answer Date Record ed Does lack of transportation keep you from medica l appointments? 1 08/18/2023 Does lack of transportation keep you from work, meetings or getting things that you need? 1 08/18/2023 Housing Stability Answer Date Recorded What is your housing situation today? 1 08/18/2023 Interpersonal Safety Answer Date Record ed Are you being hit, kicked, p ushed or yelled at (see row info)? No 03/17/2024 Interpersonal Safety Abuse 12 - 18 Not on file 03/17/2024 Interpersonal Safety Ambulatory Vulnerability No t on file 03/17/2024 Utilities Answer Date Recorded Do you have trouble paying f or utilities (for example, heat, electricity, water, phone)? 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 Not on file Not on file Not on file Not on file Not on file Not on file Not on file Obstetrics History Last Filed Vital Signs Vital Sign Reading Time Taken Comments Blood Pressure 129/85 03/17/2024 4:53 PM CDT Pulse 80 03/17/2024 4:53 PM CDT Temperature 36.9 C (98.4 F) 03/17/2024 12:38 PM CDT Respiratory Rate 16 03/17/2024 12:36 PM CDT Oxygen Saturation 97% 03/17/2024 4:53 PM CDT Inhaled Oxygen Concentration - - Weight 86.8 kg (191 lb 6.4 oz) 03/17/2024 12:36 PM CDT Height 172.7 cm (5' 8) 03/17/2024 12:36 PM CDT Body Mass Index 29.1 03/17/2024 12:36 PM CDT Plan of Treatment Health Maintenance Due Date Last Done Comments Pneumococcal series for age 6-49 (1 of 2 - PCV) 1994 COVID-19 vaccine series ( - 2023- season) 2024 BMI (ht and wt on same day) for age 18+ 08/21/2024 08/21/2023, 08/18/2023, 08/15/2021, Additional history exists Depression screening for age 12+ 08/21/2024 08/21/2023, 10/16/2021, 10/16/2021, Additional history exists Influenza Vaccine (Season Ended) 2025 Lipids for age 45-75 08/21/2028 08/21/2023, 10/16/2021, 12/28/2013, Additional history exists Colonoscopy through age 75 08/28/202808/28, 08/28/2023, 08/28/2023, Additional history exists Tetanus booster 08/21/2033 08/21/2023, 09/11, 09/24/2003 HIV for age 15-65 Completed 05/17/2008 Hepatitis C screening for ag e 18-79 Completed 08/21/2023 Tdap Completed 08/21/2023 Medical Devices Implanted Type Area Child Care Aide Device Identifier Shelf Expiration Date Model / Serial / Lot Mesh Inguinal Rt 4x6in 3-D Max - [id number] Implanted:Qty: 1 on 06/16/2019 by Sunny Ramirez MD at [facility] Right: Inguinal [employer] 03/07/2024 [id number] / / [id number] Mesh Ventral 4.[facility] [id number] Implanted:Qty: 1 on 06/16/2019 by Sunny Ramirez MD at [facility] N/A: Abdomen [employer] 03/07/2021 [id number] / / [id number] Procedures Procedure Name Priority Date/Time Associated Diagnosis Comments COLONOSCOPY DIAGNOSTIC FELICITAS 08/28/2023 7:10 AM GIS MANAGER Hematochezia Melena History of colon polyps Polyp of colon, unspecified part of colon, unspecified type ANTI HCV Routine 08/21/2023 10:23 AM GIS MANAGER Encounter for hepatitis C screening test for low risk patient LIPID PANEL W REFLEX MEASURED LDL Routine 08/21/2023 10:23 AM GIS MANAGER Routine general medical examination at a health care facility ANTI HIV 1/2 Routine 05/17/2008 2:06 PM CDT Other Malaise and Fatigue from Last 3 Months or Most Recently Relevant to Health Maintenance Results * COLONOSCOPY (08/28/2023 7:53 AM GIS MANAGER) 08/28/2023 7:53 AM GIS MANAGER Narrative Transcriptions Mark Dyson MD - 09/02/2023 9:47 AM CST Patient Name: Juan Carlos Mckeon Procedure Date: 08/28/2023 Gender: Male Date of : 1975 Admit Type: Outpatient Procedure: Colonoscopy Proceduralist: Mark Dyson MD , Ladan Marcelo (Nurse), Vandana Roth (Nurse) Referring MD: Silva Álvarez Indications/Pre-Op Diagnosis: Evaluation of unexplained GI bleeding presenting with Hematochezia, Evaluation of unexplained GI bleeding presenting withMelena (upper GI source has been excluded), Highrisk colon cancer surveillance: Personal historyof adenoma less than 10 mm in size, Last colonoscopy: November 2013 Medications: Fentanyl 100 micrograms IV, Midazolam 4 mgIV, The level of sedation administered wasmoderate Procedure Description: The patient had risks, benefits and alternatives explained to andgave informed consent. The patient had a stable cardiopulmonary status and judged an adequate candidate for conscious sedation. The endoscope [id number] was passed through the anus andadvanced to the cecum, identified by appendiceal orifice and ileocecal valve.The colonoscopy was performed without difficulty. The patient toleratedthe procedure well. The quality of the bowel preparation was good. The ileocecal valve, appendiceal orifice, and rectum were photographed. Complications: No immediate complications. Estimated Blood Loss & Specimen: Estimated blood loss: none. Specimen collected - Yes and sent to Laboratory Findings: The perianal and digital rectal examinations were normal. A 4 mm polyp was found in the transverse colon. The polyp wassessile. The polyp was removed with a cold snare. Resection and retrieval were complete. Two sessile polyps were found in the sigmoid colon. The polyps were 3to 4 mm in size. These polyps were removed with a cold snare. Resectionand retrieval were complete. Internal hemorrhoids were found. The exam was otherwise without abnormality on direct and retroflexion views. Impressions/Post-Op Diagnosis: - One 4 mm polyp in the transverse colon, removed with a cold snare. Resected and retrieved. - Two 3 to 4 mm polyps in the sigmoid colon, removed with a coldsnare. Resected and retrieved. - Internal hemorrhoids. - The examination was otherwise normal on direct and retroflexionviews. Recommendation: - Patient has a contact number available for emergencies. The signsand symptoms of potential delayed complications were discussed with the patient. Return to normal activities tomorrow. Written discharge instructions were provided to the patient. - Resume previous diet. - Continue present medications. - Await pathology results. - Repeat colonoscopy is recommended. The colonoscopy date will be determined after pathology results from today's exam become available for review. Moderate Sedation: A time out was performed before the procedure. Moderate (conscious) sedation was administered by the endoscopy nurse and supervised bythe endoscopist. The following parameters were monitored: oxygensaturation, heart rate, blood pressure, EKG, CO2, respiratory rate, adequacy of pulmonary ventilation and reponse to care. Please refer to the patient's medical record flowsheets and nursing notes for moderate sedation details. Total physician intraservice time was 18 minutes. Mark Dyson MD 08/28/2023 8:40:40 AM This report has been signed electronically. Note Initiated On: 08/28/2023 7:53 AM Procedure Code(s): --- Professional --- 99136, Colonoscopy, flexible; with removalof tumor(s), polyp(s), or other lesion(s) bysnare technique Diagnosis Code(s): --- Professional --- D12.2, Benign neoplasm of ascending colon D12.5, Benign neoplasm of sigmoid colon K64.8, Other hemorrhoids K92.1, Melena (includes Hematochezia) CPT copyright 2021 [employer]. All rights reserved. The codes documented in this report are preliminary and upon industrial maintenance manager reviewmay be revised to meet current compliance requirements. Scope In: Scope Out: us Mark Dyson MD PROCEDURE ORD Edited Re sult - Final * (ABNORMAL) LIPID PANEL W REFLEX MEASURED LDL (08/21/2023 10:23 AM GIS MANAGER) CHOLESTEROL,TOTAL 185 100 - 199 mg/dL 08/21/2023 11:27 AM [facility] Comment: Cholesterol, Total Reference Ranges Desirable <200 mg/dL Borderline 200-239 mg/dL High >=240 mg/dL TRIGLYCERIDES 180(H) <150 mg/dL 08/21/2023 11:27 AM [facility] HDL CHOLESTEROL 39(L) >40 mg/dL 11:27 AM [facility] NON-HDL CHOLESTEROL 146(H) <145 mg/dl 08/21/2023 11:27 AM [facility] CHOL/HDL RATIO 4.74(H) <4.50 08/21/2023 11:27 AM [facility] LDL CHOLESTEROL 110 <=130 mg/dL 08/21/2023 11:27 AM [facility] VLDL CHOLESTEROL 36(H) <=30 mg/dL 08/21/2023 11:27 AM [facility] PROVIDER ORDERED STATUS RANDOM 08/21/2023 11:27 AM [facility] Blood BLOOD SPECIMEN / Unknown Venipuncture / Unknown 08/21/2023 10:23 AM GIS MANAGER 08/21/2023 10:25 AM GIS MANAGER Alexandra Leonard DO CHEMISTRY Final Result Performing Organization Address City/[facility]/ZIP Co de Phone Number [facility] [address] [place] [address] * ANTI HCV (08/21/2023 10:23 AM GIS MANAGER) [facility] HEPATITIS C ANTIBODY Non-Reacti ve Non-React bryce 08/21/2023 9:11 PM [facility] Comment:Please note, per www .CDC.gov: If a patient is known to be at high risk of HCV infection, or is symptomatic, and the physician's suspicion of HCV infection is high, HCV RNA testing is often employed and is of diagnostic value, even after an initial negative anti-HCV test result. Blood BLOOD SPECIMEN / Unknown Venipuncture / Unknown 08/21/2023 10:23 AM GIS MANAGER 08/21/2023 10:25 AM GIS MANAGER us Alexandra Leonard DO SEND OUTS Final Result [facility] [address] [place] [address], [place] * ANTI HIV 1/2 (05/17/2008 2:06 PM CDT) ANTI HIV 1/2 Non-reacti ve [facility] Blood specimen (specimen) BLOOD SPECIMEN / Unknown 05/17/2008 2:06 PM CDT 05/17/2008 2:01 PM CDT us Trish Arriaga DO SEND OUTS Final Resu lt [facility] [place]NAL ZIP [id number] [place] [id number] from Last 3 Months or Most Recently Relevant to Health Maintenance Insurance [facility] Advance Directives * Full Code (Latest Code Status on File) Date Activated Date Inactivated Comments 07/03/2020 8:19 AM 07/03/2020 3:53 PM Question Answer Comments Code Status Discussion: Not Discussed * Full Code Date Activated Date Inactivated Comments 06/16/2019 9:26 AM 06/16/2019 5:57 PM * Full Code Date Activated Date Inactivated Comments 02/14/2019 5:03 PM 02/15/2019 7:49 PM * Full Code Date Activated Date Inactivated Comments 09/19/2006 2:10 PM 09/19/2006 9:25 PM Care Teams Simulation Engineer Relationship Specialty Start Date End Date [place], [facility] [address] [place] [address] PCP - General 06/11/19
--- OUTSIDE RECORDS SUMMARY | 2024-12-12 12:52 | XMS_ITS | Data Portability ---
Author Organization [facility] Address [address] [place] [address] Assessment No assessment recorded. Plan of Treatment Reminders Order Date Submit Date Provider Last Modified By Organization Details Last Modified Time Details Appointments None record ed. Lab None record ed. Referral None record ed. Procedures None record ed. Surgeries None record ed. Imaging None record ed. Medication Orders None record ed. Patient TargetsNo targets recorded. Patient InstructionsNo instructions recorded. Reason for Referral None Reported. Problems No Known Problems Medical Equipment None Reported. Allergies No known drug allergies Medications Not known to be on any medication Vitals Date Recorded Body height Body mass index (BMI) Body weight Body temperature Oxygen saturation Oxygen saturation in Arterial blood by Pulse oximetry Heart rate Respiratory rate Systolic blood pressure Diastolic blood pressure Provider Name and Address Organization Details Last Updated DateTime 3 172.72 cm 31.6 kg/m2 20653.2 1 g 98.9 [degF] 95 % 95 % 80 /min 18 /min 120 mm[Hg] 86 mm[Hg] Brandy Flores [facility] 3 23:04:15 Social History Question Answer Notes LastModified by Organizat ion Details LastModified Time Tobacco Smoking Status Current Every Day Smoker Brandy sen [facility] 12/11/2022 23:01:55 What Is Your Level Of Alcohol Consumption? None [email or web address] Information not available 12/11/2022 What Is Your Level Of Caffeine Consumption? None [email or web address] Information not available 12/11/2022 What Is Your Relationship Status? [email or web address] Information not available 12/11/2022 How Much Tobacco Do You Smoke? 1 PPD [email or web address] Information not available 12/11/2022 Do You Use Any Illicit Or Recreational Drugs? No [email or web address] Information not available 12/11/2022 Sex: Unknown Functional Status None recorded. Mental Status None recorded. Family History Relationship Description Onset Age of this Age Resolved Age Notes LastModified by Organization Details LastModified Time Father No current problems or disability [email or web address] Not available 10/2022 23:01:26 Mother No current problems or disability [email or web address] Not available 10/2022 23:01:26 Medical History No medical history recorded. Past Encounters Encounter ID Performer Location Encounter Start Date Encounter Closed Date Diagnosis/Indication Diagnosis SNOMED-CT Code Diagnosis ICD10 Code Diagnosis Note [id number] JOSE Marshall [facility], [facility] [address] [facility] [address] [place] [address] 12/11/2022 22:53:17 12/11/2022 23:25:54 Obstruction of salivary duct 28918137 K11.8 follow up as needed. Health Concerns Section Related Observation LastModified by Organization Detai ls LastModified Time None Recorded Concern Status LastModified by Organization Details LastModified Time None Recorded Advance Directives Directive None Recorded Payers Encounter Date Sequence Insurance Name Policy Number Policy Leonard Covered Member ID Leonard Member ID Guarantor Name 12/11/2022 1 [place] TAYLOR Mckeon [id number] Juan Carlos Mckeon Notes Date Note Type Note Provider Name and Address Organization Details Recorded Time 12/11/2022 text/html New patient presents with swollen salivary duct under his tongue. Started yesterday. Became painful today. No fever. JOSE Marshall [address] [facility],[address], [place], [address], [facility] 12/11/2022 23:30:12
--- NOTE | 2024-12-12 13:10 | CRLHL7_ITS ---
For Patients: As a result of the Cures Act, medical imaging exams and procedure reports are released immediately into your electronic medical record. You may view this report before your referring provider. If you have questions, please contact your health care provider. INDICATION: Right flank. TECHNIQUE: CT abdomen and pelvis acquired without contrast. COMPARISON: CT abdomen and pelvis 09/09/2022. FINDINGS: Lower chest: Unremarkable. Liver: Unremarkable. Spleen: Unremarkable. Pancreas: Unremarkable. Gallbladder and bile ducts: No calcified stones or biliary ductal dilatation. Kidneys: A 3 mm stone near the right ureteropelvic junction causes mild hydronephrosis and perinephric stranding. No additional evidence of urolithiasis. Unenhanced kidneys are otherwise unremarkable. Adrenal glands: Unremarkable. GI tract: No obstruction or focal inflammatory changes. Normal appendix. No free air or free fluid. Lymph nodes: No pathologic lymphadenopathy. Vascular structures: Unremarkable. Pelvic Organs: Mild prostatomegaly. Bladder is unremarkable. Bones: No acute or suspicious osseous abnormality. IMPRESSION: Right ureteropelvic junction 3 mm stone causing mild hydronephrosis and perinephric stranding. Dictated by Peewee Syed MD @ 12/12/2024 2:20:55 PM Please note that all CT scans at this facility use dose modulation, iterative reconstruction, and/or weight-based dosing when appropriate to reduce radiation dose to as low as reasonably achievable. Dictated by: Peewee Syed MD @ 12/12/2024 14:21:17 (Electronically Signed)
--- NOTE | 2024-12-12 13:15 | ED.GENADULT ---
HPI - General Adult General Chief complaint: Flank Pain Stated complaint: Severe R flank pain Time Seen by Provider: 12/12/24 12:58 Source: patient Mode of arrival: ambulatory Limitations: no limitations History of Present Illness HPI narrative: 49-year-old male presenting today with right flank and abdominal pain that started 4 days ago. The pain started in the right flank area and now spread to the anterior right lower abdomen. This morning he vomited. He has felt nauseated for the last 4 days. Denies fevers or chills. He denies diarrhea or constipation. He does state he has had increased urinary frequency. Denies any blood in his urine. Patient does have a history of kidney stones in this is very reminiscent of his previous episode. Patient does smoke 2 and half pack cigarettes per day. Related Data Previous Rx's ?Medication ?Instructions ?Recorded cefdinir 300 mg capsule 300 mg PO BID 10 days #20 caps 03/23/22 ciprofloxacin HCl 500 mg tablet 500 mg PO BID #42 tabs 09/09/22 ciprofloxacin HCl 500 mg tablet 500 mg PO BID 7 days #14 tabs 12/12/24 hydrocodone 5 mg-acetaminophen 325 1 tab PO TID PRN pain #7 tabs 12/12/24 mg tablet ketorolac 10 mg tablet 10 mg PO TID 5 days #15 tabs 12/12/24 tamsulosin 0.4 mg capsule (Flomax) 0.4 mg PO QHS #30 caps 12/12/24 Allergies Allergy/AdvReac Type Severity Reaction Status Date / Time No Known Allergies Allergy Verified 12/12/24 12:57 Review of Systems Status of ROS: Reports: 10 or more systems reviewed and unremarkable except as noted in History and below [facility] Social History Smoking Status: Current every day smoker What tobacco products do you use: cigarettes Do you use any of these nicotine containing products: None Second hand tobacco smoke exposure: No How often do you have a drink containing alcohol: never AUDIT-C Alcohol total score: 0 Non-prescribed substance use: denies use service: No Exam Narrative: Exam Narrative: Well-nourished well-developed patient, clearly uncomfortable. Alert and oriented. Answers questions appropriately. Mood and affect are appropriate. Thoughts are goal oriented and rational. No tangential or magical thinking noted. Patient speaks in full sentences without needing to catch his breath. Smells strongly of tobacco. HEENT: Normocephalic atraumatic. Pupils are equally round reactive to light. Extraocular muscles are intact. Conjunctivae are moist without any icterus noted. Moist mucous membranes. Cardiovascular: Heart is regular rate and rhythm S1 and S2 are present without any murmurs. Lungs: Clear to auscultation bilaterally no wheezes rhonchi or rales are appreciated. Abdomen: Patient has right lower quadrant tenderness. Normal bowel sounds. He does have CVA tenderness on the right as well. Extremities: Bilateral lower extremities are without edema. Patient has significant clubbing noted. Skin: Well perfused. Const: Vital Signs, click to edit/add: Vital Signs - 24 hr 12/12/24 12:54 Temperature 98.0 F Pulse Rate [Left P ulse Oximeter] 61 Respiratory Rate 18 Blood Pressure [Ri ght Upper Arm] 150/89 H Pulse Oximetry 99 Course Course ED Course: Differential diagnosis includes kidney stones, appendicitis, ischemic bowel. Less likely given the location of his symptoms pancreatitis, cholecystitis. IV was established and patient started on normal saline, Zofran and Toradol. CBCs minimally elevated at 11.18, 76.7% neutrophils. Chemistries are unremarkable with a normal creatinine and BUN. CRP minimally elevated at 2.8. UA has 3+ blood. Abdominal CT scan shows a right-sided 3 mm kidney stone at the ureteropelvic junction causing mild hydronephrosis. Patient felt better after treatment. Vital Signs Vital signs: Initial Vital Signs Temperature 98.0 F 12/12/24 12:54 Temperature Source Temporal Artery Scan 12/12/24 12:54 Pulse Rate 61 12/12/24 12:54 Respiratory Rate 18 12/12/24 12:54 Blood Pressure 150/89 H 12/12/24 12:54 Blood Pressure Mean 109 H 12/12/24 12:54 Blood Pressure Position Sitting 12/12/24 12:54 Pulse Oximetry 99 12/12/24 12:54 Vital Signs Temperature 98.0 F 12/12/24 12:54 Pulse Rate 61 12/12/24 12:54 Respiratory Rate 18 12/12/24 12:54 Blood Pressure 150/89 H 12/12/24 12:54 Pulse Oximetry 99 12/12/24 12:54 Temperature 98.0 F 12/12/24 12:54 Pulse Rate 61 12/12/24 12:54 Respiratory Rate 18 12/12/24 12:54 Blood Pressure 150/89 H 12/12/24 12:54 Pulse Oximetry 99 12/12/24 12:54 Medications Administered Medications: Discontinued Medications Generic Name Dose Route Start Last Admin Trade Name Freq PRN Reason Stop Dose Admin Sodium Chloride 1,000 mls @ 1,000 mls/hr 12/12/24 13:15 12/12/24 13:39 0.9 % Sodium Chloride 1000 Ml IV 12/12/24 14:14 1,000 mls/hr .Q1H JOMAR Administration Ketorolac Tromethamine 30 mg 12/12/24 13:10 12/12/24 13:39 Ketorolac 30 Mg/Ml Inj IVP 12/12/24 13:11 30 mg ONCE ONE Administration Ondansetron HCl 4 mg 12/12/24 13:10 12/12/24 13:39 Ondansetron 2 Mg/Ml Inj IVP 12/12/24 13:11 4 mg ONCE ONE Administration Medical Decision Making MDM Narrative Medical decision making narrative: 49-year-old male with a right-sided kidney stone. Patient does have a slightly elevated white count and CRP, history of urosepsis. We will put the patient on Cipro, Toradol, Flomax and [place]. Lab Data Lab results reviewed: Yes I reviewed the patient's lab results Labs: Lab Results 12/12/24 12/12/24 Range/Units 13:30 14:10 WBC 11.18 H (4.50-11.00) K/uL RBC 5.23 (4.30-5.90) m/uL Hgb 15.8 (13.5-17.5) gm/dL Hct 47.4 (37.0-53.0) % MCV 91 (80-100) fL MCH 30 (26-34) pg MCHC 33 (32-36) gm/dL RDW Coeff of Suzanne 13.7 (11.5-15.5) % Plt Count 287 (140-440) K/uL Neut % (Auto) 76.7 H (42.0-72.0) % Lymph % (Auto) 13.7 L (20-44) % Maverick % (Auto) 8.8 (0.0-11.0) % Eos % (Auto) 0.4 (0.0-7.0) % Baso % (Auto) 0.2 (0.0-3.0) % Neut # (Auto) 8.60 H (1.7-7.0) K/uL Lymph # (Auto) 1.50 (0.90-2.90) K/uL Maverick # (Auto) 1.00 H (0.00-0.90) K/UL Eos # (Auto) 0.00 (0.00-0.50) K/uL Baso # (Auto) 0.00 (0.00-0.30) K/uL Abs Immat Gran (auto) 0.00 (0.00-0.30) K/uL Imm/Tot Granulo (auto) 0.2 % Sodium 140 (135-149) mmol/L Potassium 3.8 (3.6-5.1) mmol/L Chloride 109 (96-114) mmol/L Carbon Dioxide 24 (20-32) mmol/L Anion Gap 7 (7-15) mEq/L BUN 14 (5-24) mg/dL Creatinine 1.2 (0.5-1.5) mg/dL Estimated Creat Clear 72.04 Estimated GFR 74 ml/min Glucose 83 (60-115) mg/dL Lactate 1.3 (0.5-1.9) mmol/L Calcium 8.5 (8.4-10.6) mg/dL Total Bilirubin 0.6 (0.1-1.5) mg/dL Direct Bilirubin 0.3 (0.0-0.5) mg/dL AST 20 (12-35) U/L ALT 15 (4-50) U/L Alkaline Phosphatase 86 (40-150) U/L C-Reactive Protein 2.8 H (0.5-1.0) mg/dL Total Protein 7.0 (6.0-8.3) g/dL Albumin 3.8 (3.3-5.0) g/dL Lipase 65 (23-300) U/L Urine Color Chitra A (Yellow) Urine Appearance Clear (Clear) Urine pH 5.5 (5.0-8.5) Ur Specific [place] >= 1.030 (1.000-1.030) Urine Protein 2+ A (Negative) Urine Glucose (UA) Negative (Negative) Urine Ketones Negative (Negative) Urine Blood 3+ A (Negative) Urine Nitrite Negative (Negative) Urine Bilirubin 1+ A (Negative) Urine Urobilinogen 0.2 (0.2-1.0) Ur Leukocyte Esterase Negative (Negative) Imaging Data CT scan - abdomen: Attestation: I have reviewed the pertinent imaging results. Radiologist's impression: TECHNIQUE: CT abdomen and pelvis acquired without contrast. COMPARISON: CT abdomen and pelvis 09/09/2022. FINDINGS: Lower chest: Unremarkable. Liver: Unremarkable. Spleen: Unremarkable. Pancreas: Unremarkable. Gallbladder and bile ducts: No calcified stones or biliary ductal dilatation. Kidneys: A 3 mm stone near the right ureteropelvic junction causes mild hydronephrosis and perinephric stranding. No additional evidence of urolithiasis. Unenhanced kidneys are otherwise unremarkable. Adrenal glands: Unremarkable. GI tract: No obstruction or focal inflammatory changes. Normal appendix. No free air or free fluid. Lymph nodes: No pathologic lymphadenopathy. Vascular structures: Unremarkable. Pelvic Organs: Mild prostatomegaly. Bladder is unremarkable. Bones: No acute or suspicious osseous abnormality. IMPRESSION: Right ureteropelvic junction 3 mm stone causing mild hydronephrosis and perinephric stranding. Discharge Plan Discharge Clinical Impression: Kidney calculi Patient Disposition: Home, Self-Care Condition: Stable Additional Instructions: Take antibiotic as prescribed-this is to prevent infection. Take Flomax daily to help the stone pass. This medication will relax the muscles of the urinary tract. Increase daily water intake. Take pain medication as needed/as prescribed. Be careful when taking [place]-this is a narcotic pain medication that can cause drowsiness and constipation. Do not drive or operate any heavy machinery while you take this medication. Return to the emergency department if you cannot control your pain, you cannot stop vomiting or you develop a fever. Prescriptions: New ciprofloxacin HCl 500 mg tablet 500 mg PO BID 7 Days Qty: 14 0RF ketorolac 10 mg tablet 10 mg PO TID 5 Days Qty: 15 0RF tamsulosin [Flomax] 0.4 mg capsule 0.4 mg PO QHS Qty: 30 1RF hydrocodone-acetaminophen 5-325 mg tablet 1 tab PO TID PRN (Reason: pain) Qty: 7 0RF No Action cefdinir 300 mg capsule 300 mg PO BID 10 Days Qty: 20 0RF ciprofloxacin HCl 500 mg tablet 500 mg PO BID Qty: 42 0RF Follow Up/Referrals: Provider,Not a Local [Primary Care Provider] - Stand Alone Forms: Webcollage Info Instructions
[2024-12-12 13:36] LABS: Lactate* 1.3 mmol/L (0.5-1.9)
[2024-12-12 13:39] LABS: Basophils Percent Auto 0.2 % (0.0-3.0); Eosinophils Percent Auto 0.4 % (0.0-7.0); Hematocrit 47.4 % (37.0-53.0); Hemoglobin* 15.8 gm/dL (13.5-17.5); Immature Granulocytes Pct Auto 0.2 %; Lymphocytes Percent Auto 13.7 % (20-44); Mean Corpuscular HGB Conc 33 gm/dL (32-36); Mean Corpuscular Hemoglobin 30 pg (26-34); Mean Corpuscular Volume 91 fL (80-100); Monocytes Percent Auto 8.8 % (0.0-11.0); Neutrophils Percent Auto 76.7 % (42.0-72.0); Platelet Count* 287 K/uL (140-440); RDW Coefficient of Variation % 13.7 % (11.5-15.5); Red Blood Count 5.23 m/uL (4.30-5.90); Slide Review Reflex No; White Blood Count* 11.18 K/uL (4.50-11.00)
[2024-12-12] MEDS: 0.9 % SODIUM CHLORIDE 1000 ml 1,000 ML IV (13:39)
[2024-12-12] MEDS: KETOROLAC 30 MG/ML inj IVP (13:39)
[2024-12-12] MEDS: ONDANSETRON 2 MG/ML inj 4 MG IVP (13:39)
--- OUTSIDE RECORDS SUMMARY | 2024-12-12 13:44 | XMS_ITS | Clinical Summary ---
Author Organization [facility] Address [address] [place] [address] Care Team Providers Care Freight Car Inspector Name Role Phone Clinician, Not Found MD Primary Care Provider Un available Source Comments You are receiving this document as you are listed as the primary care provider,follow-up provider, or the patient has been referred to you for consultation.This is in compliance with the Medicare and[facility] EHR Incentive Program,which states Providers who transition their patient to another setting of careor provider of care or refers their patient to another provider of care shouldprovide summary care record for each transition of care or referral. [employer] Allergies No known active allergies Medications No [...] Comments Blood Pressure 122/81 07/18/2020 6:22 PM SHOWROOM SALES ASSISTANT Pulse 74 07/18/2020 6:22 PM SHOWROOM SALES ASSISTANT Temperature 36.8 C (98.2 F) 07/18/2020 5:58 PM SHOWROOM SALES ASSISTANT Respiratory Rate 20 07/18/2020 6:22 PM SHOWROOM SALES ASSISTANT Oxygen Saturation 97% 07/18/2020 5:58 PM SHOWROOM SALES ASSISTANT Inhaled Oxygen Concentration - - Weight 83.9 kg (185 lb) 06/23/2020 3:30 PM SHOWROOM SALES ASSISTANT Height 172.4 cm (5' 7.87) 06/23/2020 3:30 PM CS T Body Mass Index 28.23 06/23/2020 3:30 PM SHOWROOM SALES ASSISTANT Plan of Treatment Health Maintenance Due Date [...] patient's age to complete this topic Insurance [facility] BLUE LINK Care Teams Freight Car Inspector Relationship Specialty Start Date End Date Clinician, Not Found, [place] [address] PCP - General 06/12/20
--- OUTSIDE RECORDS SUMMARY | 2024-12-12 13:44 | XMS_ITS | Clinical Summary ---
Author Organization [facility] Address [address] [place] [address] Care Team Providers Care Rig Supervisor Name Role Phone Elsewhere, Pcp Primary Care Provider Unavailabl e Source Comments Patient records contain information from all sites at [facility]. For routine questions regarding patient records, call [phone] during business hours, M-F 8:00 AM - 5:00 PM Central Time. Record requests for emergency care only can be directed to [phone] at any time.[facility] Allergies No known active allergies Medications No known medications Active Problems Problem Noted Date Diagnosed Date Pain Finger Right Encounters Date Type Department Care Team Description 09/20/2024 Clinical Communication Count Includes [facility] Department of Family Medicine in [place], [place] [address] [place] [address] Meghan Lemus M.D. 09/20/2024 Orders Only [facility] of Family Medicine in [place], [place] [address] [place] [id number] Meghan Lemus M.D. 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 LAB BLOOD ADD-ON Final Resu lt [facility] [address] [place] [address], [facility] [place] [facility] [address] [place] [address] from Last 3 Months or Most Recently Relevant to Health Maintenance Insurance [facility] Care Teams Rig Supervisor Relationship Specialty Start Date End Date Elsewhere, Pcp PCP - General Family Medicine 11/07/17
--- OUTSIDE RECORDS SUMMARY | 2024-12-12 13:44 | XMS_ITS | Clinical Summary ---
Author Organization [facility] Address [address] [place] [id number] Care Team Providers Care Heading Maker Name Role Phone 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 Not on file Not [...] Completed 08/21/2023 Medical Devices Implanted Type Area Ovens Supervisor Device Identifier Shelf Expiration Date Model / Serial / Lot Mesh Inguinal Rt 4x6in 3-D Max - [id number] Implanted:Qty: 1 on 06/16/2019 by Sunny Ramirez MD at [facility] Right: Inguinal [employer] 03/07/2024 [id number] / / [id number] Mesh Ventral 4.5in [employer]ral[employer] livoniat - [id number] Implanted:Qty: 1 on 06/16/2019 by Sunny Ramirez MD at [facility] N/A: Abdomen [employer] 03/07/2021 [id number] / / [id number] Procedures Procedure Name Priority Date/Time Associated Diagnosis Comments COLONOSCOPY DIAGNOSTIC FELICITAS 08/28/2023 7:10 AM CARE WORKER Hematochezia Melena History of colon polyps Polyp of colon, unspecified part of colon, unspecified type ANTI HCV Routine 08/21/2023 10:23 AM CARE WORKER Encounter for hepatitis C screening test for low risk patient LIPID PANEL W REFLEX MEASURED LDL Routine 08/21/2023 10:23 AM CARE WORKER Routine general medical examination at a health care facility ANTI HIV 1/2 Routine 05/17/2008 2:06 PM CDT Other Malaise and Fatigue from Last 3 Months or Most Recently Relevant to Health Maintenance Results * COLONOSCOPY (08/28/2023 7:53 AM CARE WORKER) 08/28/2023 7:53 AM CARE WORKER Narrative Transcriptions Mark Dyson MD - 09/02/2023 [...] adequate candidate for conscious sedation. The endoscope [id number] was passed through the anus andadvanced to [...] 7:53 AM Procedure Code(s): --- Professional --- 37579, Colonoscopy, flexible; with removalof tumor(s), polyp(s), or other lesion(s) bysnare technique Diagnosis Code(s): --- Professional --- D12.2, Benign neoplasm of ascending colon D12.5, Benign neoplasm of sigmoid colon K64.8, Other hemorrhoids K92.1, Melena (includes Hematochezia) CPT copyright 2021 [employer]. All rights reserved. The codes documented in this report are preliminary and upon medical genetics director reviewmay be revised to meet current compliance requirements. Scope In: Scope Out: us Mark Dyson MD PROCEDURE ORD Edited Re sult - Final * (ABNORMAL) LIPID PANEL W REFLEX MEASURED LDL (08/21/2023 10:23 AM CARE WORKER) CHOLESTEROL,TOTAL 185 100 - 199 mg/dL 08/21/2023 11:27 AM [facility] Comment: Cholesterol, Total Reference Ranges Desirable <200 mg/dL Borderline 200-239 mg/dL High >=240 mg/dL TRIGLYCERIDES 180(H) <150 mg/dL 08/21/2023 11:27 AM [facility] HDL CHOLESTEROL 39(L) >40 mg/dL 11:27 AM [facility] NON-HDL CHOLESTEROL 146(H) <145 mg/dl 08/21/2023 11:27 AM [facility] CHOL/HDL RATIO 4.74(H) <4.50 08/21/2023 11:27 AM [facility] LDL CHOLESTEROL 110 <=130 mg/dL 08/21/2023 11:27 AM [facility] VLDL CHOLESTEROL 36(H) <=30 mg/dL 08/21/2023 11:27 AM [facility] PROVIDER ORDERED STATUS RANDOM 08/21/2023 11:27 AM [facility] Blood BLOOD SPECIMEN / Unknown Venipuncture / Unknown 08/21/2023 10:23 AM CARE WORKER 08/21/2023 10:25 AM CARE WORKER Alexandra Leonard DO CHEMISTRY Final Result Performing Organization Address City/[facility]/ZIP Co de Phone Number [facility] [address] [place] [address] * ANTI HCV (08/21/2023 10:23 AM CARE WORKER) [facility] HEPATITIS C ANTIBODY Non-Reacti ve Non-React bryce 08/21/2023 9:11 PM [facility] Comment:Please note, per www .CDC.gov: If a patient is known to be at high risk of HCV infection, or is symptomatic, and the physician's suspicion of HCV infection is high, HCV RNA testing is often employed and is of diagnostic value, even after an initial negative anti-HCV test result. Blood BLOOD SPECIMEN / Unknown Venipuncture / Unknown 08/21/2023 10:23 AM CARE WORKER 08/21/2023 10:25 AM CARE WORKER us Alexandra Leonard DO SEND OUTS Final Result [facility] [address] [place] [address], [place] * ANTI HIV 1/2 (05/17/2008 2:06 PM CDT) ANTI HIV 1/2 Non-reacti ve [facility] Blood specimen (specimen) BLOOD SPECIMEN / Unknown 05/17/2008 2:06 PM CDT 05/17/2008 2:01 PM CDT us Trish Arriaga DO SEND OUTS Final Resu lt [facility] [place]NAL ZIP [address] [place] [id number] from Last 3 Months or Most Recently Relevant to Health Maintenance Insurance [facility] Advance Directives * Full Code (Latest Code [...] 2:10 PM 09/19/2006 9:25 PM Care Teams Heading Maker Relationship Specialty Start Date End Date [place], [facility] [address] [place] [address] PCP - General 06/11/19
[2024-12-12 13:53] LABS: Albumin* 3.8 g/dL (3.3-5.0); Chloride* 109 mmol/L (96-114); Potassium* 3.8 mmol/L (3.6-5.1); Sodium* 140 mmol/L (135-149)
[2024-12-12 13:56] LABS: Alanine Aminotransferase* 15 U/L (4-50); Alkaline Phosphatase* 86 U/L (40-150); Anion Gap 7 mEq/L (7-15); Aspartate Amino Transferase* 20 U/L (12-35); Bilirubin Direct* 0.3 mg/dL (0.0-0.5); Bilirubin Total* 0.6 mg/dL (0.1-1.5); Blood Urea Nitrogen* 14 mg/dL (5-24); Calcium* 8.5 mg/dL (8.4-10.6); Carbon Dioxide* 24 mmol/L (20-32); Creatinine* 1.2 mg/dL (0.5-1.5); Est. Creatinine Clearance* 72.04; Estimated Glomerular Filt Rate 74 ml/min; Glucose* 83 mg/dL (60-115); Lipase* 65 U/L (23-300)
[2024-12-12 13:59] LABS: C Reactive Protein* 2.8 mg/dL (0.5-1.0)
[2024-12-12 14:19] LABS: Appearance Urine Clear (Clear); Bilirubin Urine 1+ (Negative); Blood Urine 3+ (Negative); Color Urine Amber (Yellow); Glucose Urine Negative (Negative); Ketones Urine Negative (Negative); Leukocyte Esterase Urine Negative (Negative); Nitrite Urine Negative (Negative); Protein Urine 2+ (Negative); Specific Gravity Urine >= 1.030 (1.000-1.030); Urobilinogen Urine 0.2 (0.2-1.0); pH Urine 5.5 (5.0-8.5)
[2024-12-12 14:55] LABS: Bacteria Urine Few; RBC Urine >100 (0-2)
== END 2024-12-12 14:59 | disposition home or self-care (01) ==
PROVIDERS: Emergency Provider Family Medicine
DX: N20.0 Calculus of kidney (principal); R35.0 Frequency of micturition; F17.210 Nicotine dependence, cigarettes, uncomplicated
CPT/HCPCS: 36415; 74176; 80048; 80076; 81001; 83605; 83690; 85025; 86140; 87086; 96361; 96374; 96375; 99284; J1885; J2405; J7030

== ENCOUNTER 2025-05-26 15:34 | Inpatient (IN) | payer BC, SELFPAY ==
[2025-05-26] VITALS (15 sets, daily range): BP systolic 100–110; BP diastolic 62–70; PULSE 100–122; RESP 18–20; TEMP 37.6–38.2; O2SAT 94–98; BMI 28.4
--- OUTSIDE RECORDS SUMMARY | 2025-05-26 15:37 | XMS_ITS | Clinical Summary ---
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 Not on file Not [...] Health Maintenance Due Date Last Done Comments Hepatitis B series for 19+ ( 1 of 3 - 19+ 3-dose series) 1994 Pneumococcal series for age 50+ (1 of 2 - PCV) 1994 BMI (ht and wt on same day) for age 18+ 08/21/2024 08/21/2023, 08/18/2023, 08/15/2021, Additional history exists Depression screening for age 12+ 08/21/2024 08/21/2023, 10/16/2021, 10/16/2021, Additional history exists Zoster (shingles) series for age 50+ (1 of 2) 2025 COVID-19 vaccine series (2023- season) 2025 Influenza Vaccine (#1) 2025 Lipids for age 45-75 08/21/2028 08/21/2023, 10/16/2021, 12/28/2013, Additional history exists Colonoscopy through age 75 08/28/202808/28, 08/28/2023, 08/28/2023, Additional history exists Tetanus booster 08/21/2033 08/21/2023, 09/11, 09/24/2003 RSV vaccine for adults or (1 - 1-dose 75+ series) 2050 HIV for age 15-65 Completed 05/17/2008 Hepatitis C screening for ag e 18-79 Completed 08/21/2023 Medical Devices Implanted Type Area Outside B2B Sales Device Identifier Shelf Expiration Date Model / Serial / Lot Mesh Inguinal Rt 4x6in 3-D Max - [id number] Implanted:Qty: 1 on 06/16/2019 by Sunny Ramirez MD at [facility] Right: Inguinal [employer] 03/07/2024 [id number] / / [id number] Mesh Ventral 4.5in Ventralightst - [id number] Implanted:Qty: 1 on 06/16/2019 by Sunny Ramirez MD at [facility] N/A: Abdomen [employer] 03/07/2021 [id number] / / [id number] Procedures Procedure Name Priority Date/Time Associated Diagnosis Comments COLONOSCOPY 08/28/2023 7:53 AM ANTIQUE FURNITURE RESTORER ANTI HCV Routine 08/21/2023 10:23 AM ANTIQUE FURNITURE RESTORER Encounter for hepatitis C screening test for low risk patient LIPID PANEL W REFLEX MEASURED LDL Routine 08/21/2023 10:23 AM ANTIQUE FURNITURE RESTORER Routine general medical examination at a [facility] care facility ANTI HIV 1/2 Routine 05/17/2008 2:06 PM CDT Other Malaise and Fatigue from Last 3 Months or Most Recently Relevant to Health Maintenance Results * COLONOSCOPY (08/28/2023 7:53 AM ANTIQUE FURNITURE RESTORER) 08/28/2023 7:53 AM ANTIQUE FURNITURE RESTORER Narrative Transcriptions Mark Dyson MD - 09/02/2023 [...] adequate candidate for conscious sedation. The endoscope [id number] was passed through the anus andadvanced to [...] 7:53 AM Procedure Code(s): --- Professional --- 22976, Colonoscopy, flexible; with removalof tumor(s), polyp(s), or other lesion(s) bysnare technique Diagnosis Code(s): --- Professional --- D12.2, Benign neoplasm of ascending colon D12.5, Benign neoplasm of sigmoid colon K64.8, Other hemorrhoids K92.1, Melena (includes Hematochezia) CPT copyright 2021 [employer]. All rights reserved. The codes documented in this report are preliminary and upon electrical test engineer reviewmay be revised to meet current compliance requirements. Scope In: Scope Out: us Mark Dyson MD PROCEDURE ORD Edited Re sult - Final * (ABNORMAL) LIPID PANEL W REFLEX MEASURED LDL (08/21/2023 10:23 AM ANTIQUE FURNITURE RESTORER) CHOLESTEROL,TOTAL 185 100 - 199 mg/dL 08/21/2023 11:27 AM ANTIQUE FURNITURE RESTORER [facility] Comment: Cholesterol, Total Reference Ranges Desirable <200 mg/dL Borderline 200-239 mg/dL High >=240 mg/dL TRIGLYCERIDES 180(H) <150 mg/dL 08/21/2023 11:27 AM [facility] HDL CHOLESTEROL 39(L) >40 mg/dL 11:27 AM [facility] NON-HDL CHOLESTEROL 146(H) <145 mg/dl 08/21/2023 11:27 AM [facility] CHOL/HDL RATIO 4.74(H) <4.50 08/21/2023 11:27 AM [facility] LDL CHOLESTEROL 110 <=130 mg/dL 08/21/2023 11:27 AM [facility] VLDL CHOLESTEROL 36(H) <=30 mg/dL 08/21/2023 11:27 AM [facility] PROVIDER ORDERED STATUS RANDOM 08/21/2023 11:27 AM [facility] Blood BLOOD SPECIMEN / Unknown Venipuncture / Unknown 08/21/2023 10:23 AM ANTIQUE FURNITURE RESTORER 08/21/2023 10:25 AM ANTIQUE FURNITURE RESTORER Alexandra Leonard DO CHEMISTRY Final Result [facility] [address] [place] [id number] * ANTI HCV (08/21/2023 10:23 AM ANTIQUE FURNITURE RESTORER) HEPATITIS C ANTIBODY Non-Reacti ve Non-React bryce 08/21/2023 9:11 PM [facility] Comment:Please note, per www .CDC.gov: If a patient is known to be at high risk of HCV infection, or is symptomatic, and the physician's suspicion of HCV infection is high, HCV RNA testing is often employed and is of diagnostic value, even after an initial negative anti-HCV test result. Blood BLOOD SPECIMEN / Unknown Venipuncture / Unknown 08/21/2023 10:23 AM ANTIQUE FURNITURE RESTORER 08/21/2023 10:25 AM ANTIQUE FURNITURE RESTORER Alexandra Leonard DO SEND OUTS Final Result [facility] [address] [place] [address], [place] * ANTI HIV 1/2 (05/17/2008 2:06 PM CDT) ANTI HIV 1/2 Non-reacti ve [facility] Blood specimen (specimen) BLOOD SPECIMEN / Unknown 05/17/2008 2:06 PM CDT 05/17/2008 2:01 PM CDT us Trish Arriaga DO SEND OUTS Final Resu lt [facility] INTERNAL ZIP [phone] [id number] from Last 3 Months or Most Recently Relevant to Health Maintenance Insurance [facility] Advance Directives * Full Code (Latest [...] 2:10 PM 09/19/2006 9:25 PM Care Teams Production Illustrator Relationship Specialty Start Date End Date Mariana [address] [place] [address] PCP - General 06/11/19
--- OUTSIDE RECORDS SUMMARY | 2025-05-26 15:37 | XMS_ITS | Clinical Summary ---
Author Organization [facility] Address [address] [place] [address] Care Team Providers Care Edge Trimmer Mechanic Name Role Phone Clinician, Not Found MD Primary Care Provider Un available Source Comments You are receiving this document as you are listed as the primary care provider,follow-up provider, or the patient has been referred to you for consultation.This is in compliance with the Medicare and[facility] EHR Incentive Program,which states Providers who transition their patient to another setting of careor provider of care or refers their patient to another provider of care shouldprovide summary care record for each transition of care or referral. [facility] Allergies No known active allergies Medications No [...] Date Smoking Tobacco: Every Day Cigarettes 1.5 37.8 Started: 08/11/1987 Smokeless Tobacco: Former Chew Alcohol [...] Comments Blood Pressure 122/81 07/18/2020 6:22 PM VOCATIONAL COUNSELOR Pulse 74 07/18/2020 6:22 PM VOCATIONAL COUNSELOR Temperature 36.8 C (98.2 F) 07/18/2020 5:58 PM VOCATIONAL COUNSELOR Respiratory Rate 20 07/18/2020 6:22 PM VOCATIONAL COUNSELOR Oxygen Saturation 97% 07/18/2020 5:58 PM VOCATIONAL COUNSELOR Inhaled Oxygen Concentration - - Weight 83.9 kg (185 lb) 06/23/2020 3:30 PM VOCATIONAL COUNSELOR Height 172.4 cm (5' 7.87) 06/23/2020 3:30 PM CS T Body Mass Index 28.23 06/23/2020 3:30 PM VOCATIONAL COUNSELOR Plan of Treatment Health Maintenance Due Date Last Done Comments Colon Cancer Screening Plan Due 1975 Hep C Screening (Preventive Services) 1975 PSA Screening Discussion 1975 HIV Screening (Preventive Services) 1991 Adult Preventive Visit 1993 HepB Vaccine (1) 1994 Pneumococcal Vaccine 50+ Yrs (1 of 2 - PCV) 1994 DTaP/Tdap/Td Vaccine (1 - Tdap) 09/25/2003 4 Cholesterol 2010 Zoster/Shingles Vaccine (1 of 2) 2025 COVID-19 Vaccine (1 - 2023-2 5 season) 2025 Influenza Vaccine (#1) 2025 RSV Vaccine (1 - 1-dose 75+ series) 2050 HepA Vaccine Aged Out No longer eligi [...] patient's age to complete this topic Insurance [facility] Care Teams Edge Trimmer Mechanic Relationship Specialty Start Date End Date Clinician, Not Found, [place] [address] PCP - General 06/12/20
--- OUTSIDE RECORDS SUMMARY | 2025-05-26 15:37 | XMS_ITS | Clinical Summary ---
Author Organization [facility] Address [address] [place] [address] Care Team Providers Care Tapper Shank Name Role Phone Elsewhere, Pcp Primary Care Provider Unavailabl e Source Comments Patient records contain information from all sites at [facility]. For routine questions regarding patient records, call [phone] during business hours, M-F 8:00 AM - 5:00 PM Central Time. 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 LAB BLOOD ADD-ON Final Resu lt [facility] [address] [place] [address], [facility] in [facility] [address] [place] [phone] from Last 3 Months or Most Recently Relevant to Health Maintenance Insurance [facility] [facility] [employer] Care Teams Tapper Shank Relationship Specialty Start Date End Date Elsewhere, Pcp PCP - General Family Medicine 11/07/17
[2025-05-26 15:58] LABS: Appearance Urine Cloudy (Clear)
--- NOTE | 2025-05-26 16:12 | CRLHL7_ITS ---
For Patients: As a result of the Century Cures Act, medical imaging exams and procedure reports are released immediately into your electronic medical record. You may view this report before your referring provider. If you have questions, please contact your health care provider. INDICATION: BILATERAL FLANK PAIN TECHNIQUE: CT abdomen and pelvis acquired with 92 cc Isovue 370 IV contrast. COMPARISON: December 2024 and dating back to 2020. FINDINGS: Lower chest: Motion. ABDOMEN: Liver: Normal enhancement. Hepatic cyst. Subcentimeter hypodensities are too small to characterize however statistically represent cysts. Gallbladder and biliary: Normal gallbladder without radiopaque stone. Normal caliber bile ducts. Spleen: Normal size and enhancement. Pancreas: Normal enhancement without peripancreatic inflammatory changes or ductal dilatation. Adrenal glands: Normal adrenal glands. Kidneys and ureters: Normal enhancement. No radio-opaque calculi. No hydroureteronephrosis. Subcentimeter hypodensities are too small to characterize however statistically represent cysts. GI tract: The stomach is relatively decompressed. Normal caliber small and large bowel loops. Normal appendix. Vascular structures: Normal caliber abdominal aorta. Lymph nodes: Prominent but not enlarged bilateral pelvic lymph nodes. Peritoneum: No free air, free fluid, or focal drainable fluid collection. PELVIS: Genitourinary system: Heterogeneously enhanced/enlarged hyperemic prostate. Adjacent mild stranding. Urinary bladder is decompressed however there is suggestion of circumferential thickening/adjacent stranding. SKELETAL STRUCTURES AND SOFT TISSUES: No suspicious lytic or blastic lesions. IMPRESSION: Heterogeneously enhanced/enlarged hyperemic prostate. Adjacent mild stranding. Urinary bladder is decompressed however there is suggestion of circumferential thickening/adjacent stranding. Constellation of findings are concerning for acute prostatitis. Please note that all CT scans at this facility use dose modulation, iterative reconstruction, and/or weight-based dosing when appropriate to reduce radiation dose to as low as reasonably achievable. Dictated by Franklin Melgar MD @ 05/26/2025 5:30:27 PM (Electronically Signed)
--- NOTE | 2025-05-26 16:12 | ED_ITS ---
HPI - General Adult General Chief complaint: Urogenital Problems, Male Stated complaint: Back pain radiating to the abdomen, fever Time Seen by Provider: 05/26/25 16:07 History of Present Illness HPI narrative: Patient is a 50-year-old gentleman who comes in today with a 3-4 day history of fevers chills low back pain and dysuria. He is only able to pass a small amount of urine. He has had no nausea no vomiting. He has had no chest pain or shortness of breath. He has had no rashes or stiff neck no change in his sensorium. His is noted that the patient has been very weak and fatigued. He does ride to the emergency room tachycardic. Patient takes no home medications and has by his history no past medical history although he does smoke. Patient also has chronically abnormal appearing fingers which show evidence of clubbing of. Patient refers to the appearance of his fingers as Avinash Fingers Related Data Home Medications ?Medication ?Instructions ?Recorded ?Confirmed No Known Home Medications 05/26/2505/11 Allergies Allergy/AdvReac Type Severity Reaction Status Date / Time No Known Allergies Allergy Verified 05/26/25 16:59 Review of Systems Status of ROS: Reports: 10 or more systems reviewed and unremarkable except as noted in History and below [facility] Medical History (Updated 05/26/25 @ 19:14 by Epi Blackwell MD) Tobacco dependence ?F17.200 - Nicotine dependence, unspecified, uncomplicated (ICD-10) Clubbing of fingers ?R68.3 - Clubbing of fingers (ICD-10) Social History Smoking Status: Current every day smoker What tobacco products do you use: cigarettes Do you use any of these nicotine containing products: None Second hand tobacco smoke exposure: No How often do you have a drink containing alcohol: never AUDIT-C Alcohol total score: 0 Non-prescribed substance use: denies use service: No Exam Narrative: Exam Narrative: EXAM GENERAL: Patient appears uncomfortable. EYES: No scleral icterus. LYMPH: No supraclavicular or cervical lymphadenopathy. SKIN: Visible skin seen during exam normal or with benign process only. EXT: No dependent lower extremity pedal edema. HEART: Tachycardia noted no rubs clicks gallops or murmurs. LUNGS: Clear to auscultation bilaterally with no crackles or wheezes. ABD: Hypoactive bowel sounds no renal masses or guarding. PSYCH: Good eye contact, speech is not pressured. Const: Vital Signs, click to edit/add: Vital Signs - 24 hr 05/26/25 15:54 05/26/25 18:08 05/26/25 18:15 Temperature 99.6 F Pulse Rate 108 H 117 H Pulse Rate [Pulse Oximeter] 122 H Respiratory Rate 20 Blood Pressure Blood Pressure [Ri ght Upper Arm] 103/70 Pulse Oximetry 98 97 95 Oxygen Delivery Me thod Room Air 05/26/25 18:23 Temperature Pulse Rate 113 H Pulse Rate [Pulse Oximeter] Respiratory Rate Blood Pressure 100/66 Blood Pressure [Ri ght Upper Arm] Pulse Oximetry 98 Oxygen Delivery Me thod Course Course ED Course: I did start evaluation with a CT abdomen pelvis a UA CRP lactate procalcitonin CBC comprehensive metabolic panel. Follow-up based on those results. Reevaluation(s) Reevaluation #1: Patient has evidence of prostatitis and UTI on UA and CT scan with leukocytosis. Did give him a g Rocephin 1 L of normal saline. We will reassess. Vital Signs Vital signs: Initial Vital Signs Temperature 99.6 F 05/26/25 15:54 Temperature Source Oral 05/26/25 15:54 Pulse Rate 122 H 05/26/25 15:54 Respiratory Rate 20 05/26/25 15:54 Blood Pressure 103/70 05/26/25 15:54 Blood Pressure Mean 81 05/26/25 15:54 Pulse Oximetry 98 05/26/25 15:54 Oxygen Delivery Method Room Air 05/26/25 15:54 Vital Signs Temperature 99.6 F 05/26/25 15:54 Pulse Rate 122 H 05/26/25 15:54 Respiratory Rate 20 05/26/25 15:54 Blood Pressure 103/70 05/26/25 15:54 Pulse Oximetry 98 05/26/25 15:54 Oxygen Delivery Method Room Air 05/26/25 15:54 Temperature 99.6 F 05/26/25 15:54 Pulse Rate 113 H 05/26/25 18:23 Respiratory Rate 20 05/26/25 15:54 Blood Pressure 100/66 05/26/25 18:23 Pulse Oximetry 98 05/26/25 18:23 Oxygen Delivery Method Room Air 05/26/25 15:54 Medications Administered Medications: Discontinued Medications Generic Name Dose Route Start Last Admin Trade Name Ju PRN Reason Stop Dose Admin Ceftriaxone Sodium 1 gm/ 100 mls @ 200 mls/hr 05/26/25 17:49 05/26/25 18:51 Sodium Chloride IVPB 05/26/25 17:50 Infused ONCE ONE Infusion Sodium Chloride 1,000 mls @ 1,000 mls/hr 05/26/25 17:49 05/26/25 17:55 0.9 % Sodium Chloride 1000 Ml IV 05/26/25 18:48 1,000 mls/hr .Q1H JOMAR Administration Medical Decision Making MDM Narrative Medical decision making narrative: Patient presents with low back pain with difficulty urinating. He is passing his small amount of opaque urine. CT scan shows cystitis and prostatitis. Patient was initially given 1 g Rocephin 1 L of normal saline. White count is 2 2000. Procalcitonin is elevated lactate is normal. Cultures are pending. I did call review the case with hospitalist the patient will be admitted for continued IV hydration management of sepsis syndrome with the initiation of IV ciprofloxacin. Lab Data Labs: Lab Results 05/26/25 05/26/25 Range/Units 15:52 16:30 WBC 22.46 H (4.50-11.00) K/uL RBC 5.19 (4.30-5.90) m/uL Hgb 15.5 (13.5-17.5) gm/dL Hct 46.7 (37.0-53.0) % MCV 90 (80-100) fL MCH 30 (26-34) pg MCHC 33 (32-36) gm/dL RDW Coeff of Suzanne 13.8 (11.5-15.5) % Plt Count 194 (140-440) K/uL Neut % (Auto) 89.7 H (42.0-72.0) % Lymph % (Auto) 3.6 L (20-44) % [place] % (Auto) 5.3 (0.0-11.0) % Eos % (Auto) 0.0 (0.0-7.0) % Baso % (Auto) 0.1 (0.0-3.0) % Neut # (Auto) 20.10 H (1.7-7.0) K/uL Lymph # (Auto) 0.80 L (0.90-2.90) K/uL Kent # (Auto) 1.20 H (0.00-0.90) K/UL Eos # (Auto) 0.00 (0.00-0.50) K/uL Baso # (Auto) 0.00 (0.00-0.30) K/uL Abs Immat Gran (auto) 0.30 (0.00-0.30) K/uL Imm/Tot Granulo (auto) 1.3 % Diff Slide Review Acceptable Review (Acceptable) Sodium 131 L (135-149) mmol/L Potassium 3.4 L (3.6-5.1) mmol/L Chloride 98 (96-114) mmol/L Carbon Dioxide 24 (20-32) mmol/L Anion Gap 9 (7-15) mEq/L BUN 13 (7-30) mg/dL Creatinine 1.2 (0.5-1.5) mg/dL Estimated Creat Clear 71.25 Estimated GFR 74 ml/min Glucose 118 H (60-115) mg/dL Lactate 1.8 (0.5-1.9) mmol/L Calcium 8.4 (8.4-10.6) mg/dL Total Bilirubin 1.7 H (0.1-1.5) mg/dL AST 20 (12-35) U/L ALT 15 (4-50) U/L Alkaline Phosphatase 102 (40-150) U/L C-Reactive Protein 33.2 H (0.5-1.0) mg/dL Total Protein 7.6 (6.0-8.3) g/dL Albumin 3.9 (3.3-5.0) g/dL Procalcitonin 1.01 H (<0.50) ng/mL Urine Color Chitra A (Yellow) Urine Appearance Cloudy A (Clear) Urine pH 6.0 (5.0-8.5) Ur Specific [place] >= 1.030 (1.000-1.030) Urine Protein 3+ A (Negative) Urine Glucose (UA) Negative (Negative) Urine Ketones Trace A (Negative) Urine Blood 3+ A (Negative) Urine Nitrite Positive A (Negative) Urine Bilirubin 2+ A (Negative) Urine Urobilinogen 1.0 (0.2-1.0) Ur Leukocyte Esterase 3+ A (Negative) Urine RBC 10-25 A (0-2) Urine WBC >100 A (0-5) Ur Squamous Epith Cells Few (None-Few) Amorphous Sediment Few A (None) Urine Bacteria Moderate A (None) Discharge Plan Discharge Clinical Impression: Acute prostatitis Patient Disposition: Admitted As Inpatient Condition: Stable Activity Level: Other Discharge Diet: Other
[2025-05-26 16:38] LABS: Lactate* 1.8 mmol/L (0.5-1.9)
[2025-05-26 16:39] LABS: Hematocrit* 46.7 % (37.0-53.0); Hemoglobin* 15.5 gm/dL (13.5-17.5); Immature Granulocytes Abs Auto 0.30 K/uL (0.00-0.30); Immature Granulocytes Pct Auto 1.3 %; Lymphocytes Absolute Auto 0.80 K/uL (0.90-2.90); Mean Corpuscular HGB Conc 33 gm/dL (32-36); Mean Corpuscular Hemoglobin 30 pg (26-34); Mean Corpuscular Volume 90 fL (80-100); RDW Coefficient of Variation % 13.8 % (11.5-15.5); Red Blood Count* 5.19 m/uL (4.30-5.90); White Blood Count* 22.46 K/uL (4.50-11.00)
[2025-05-26 16:43] LABS: Slide Review Reflex Yes
[2025-05-26 16:56] LABS: Chloride* 98 mmol/L (96-114)
--- OUTSIDE RECORDS SUMMARY | 2025-05-26 16:56 | XMS_ITS | Data Portability ---
Author Organization [facility] [place] Address [address] [place] [address] Assessment No assessment recorded. Plan of Treatment [...] Pulse oximetry Heart rate Respiratory rate Systolic And Diastolic Provider Name and Address Organization Details Last Updated DateTime 3 172.72 cm 31.6 kg/m2 83588.2 1 g 98.9 [degF] 95 % 95 % 80 /min 18 /min 120/86 mm[Hg] Brandy Flores [facility] 3 23:04:15 Social History Question Answer Notes LastModified by [employer] Details LastModified Time Tobacco Smoking Status Current Every Day Smoker Brandy sen [facility] 12/11/2022 23:01:55 What Is Your Level Of Caffeine Consumption? None [email or web address] Information not available 12/11/2022 What Is Your Relationship Status? [email or web address] Information not available 12/11/2022 How Much Tobacco Do You Smoke? 1 PPD [email or web address] Information not available 12/11/2022 Sex: Unknown Functional Status Question Answer Note LastModified by [employer] Details LastModified Time Do you use any illicit or recreational drugs? No Information not available 12/11/2022 What is your level of alcohol consumption? None [email or web address] Information not available 12/11/2022 Mental Status None recorded. Family History Relationship Description Onset Age of this Age Resolved Age Notes LastModified by Organization Details LastModified Time Father No current problems or disability [email or web address] Not available 10/2022 23:01:26 Mother No current problems or disability [email or web address] Not available 10/2022 23:01:26 Medical History No medical history recorded. Past Encounters Encounter ID Performer Location Encounter Start Date Encounter Closed Date Diagnosis/Indication Diagnosis SNOMED-CT Code Diagnosis ICD10 Code Diagnosis IMO Codes Diagnosis Note [id number] JOSE Marshall [facility] [address] [facility] [address] [place] [address] 12/11/2022 22:53:17 12/11/2022 23:25:54 Obstruction of salivary duct 07136652 K11.8 follow up as needed. Health Concerns Section Related Observation LastModified by Organization Detai ls LastModified Time None Recorded Concern Status LastModified by Organization Details LastModified Time None Recorded Advance Directives Directive None Recorded Payers Insurance Date Sequence Insurance Name Policy Number Policy Leonard Covered Member ID Leonard Member ID Guarantor Name 12/11/2022 1 [place] TAYLOR Rangel Hamzah Mckeon [id number] Juan Carlos Mckeon Notes Date Note Type Note Provider Name and Address Organization Details Recorded Time 12/11/2022 text/html ROS as noted in the HPI New patient presents with swollen salivary duct under his tongue. Started yesterday. Became painful today. No fever. JOSE Marshall [address] [facility],[address], [place], [address], [employer] [facility] 12/11/2022 23:30:12
[2025-05-26 16:57] LABS: Albumin* 3.9 g/dL (3.3-5.0); Potassium* 3.4 mmol/L (3.6-5.1); Sodium* 131 mmol/L (135-149)
[2025-05-26 17:00] LABS: Alanine Aminotransferase* 15 U/L (4-50); Alkaline Phosphatase* 102 U/L (40-150); Anion Gap 9 mEq/L (7-15); Aspartate Amino Transferase* 20 U/L (12-35); Bilirubin Total* 1.7 mg/dL (0.1-1.5); Blood Urea Nitrogen* 13 mg/dL (7-30); Calcium* 8.4 mg/dL (8.4-10.6); Carbon Dioxide* 24 mmol/L (20-32); Creatinine* 1.2 mg/dL (0.5-1.5); Est. Creatinine Clearance* 71.25; Estimated Glomerular Filt Rate 74 ml/min; Glucose* 118 mg/dL (60-115); Total Protein* 7.6 g/dL (6.0-8.3)
[2025-05-26 17:15] LABS: Slide Review Acceptable Review (Acceptable)
[2025-05-26 17:17] LABS: Procalcitonin* 1.01 ng/mL (<0.50)
[2025-05-26] MEDS: cefTRIAXone 1 GM in 0.9 % SODIUM CHLORIDE Mini-bag 100 ML IVPB (18:01)
--- NOTE | 2025-05-26 19:05 | P.IMHP_ITS ---
Assessment and Plan Assessment and plan (1) Severe sepsis: Problem comment: -criteria is met with a significant drop from his baseline blood pressure down to 100-103 systolic from a baseline of 140-150. -his heart rate is elevated, his respiratory rate is elevated, and his white blood cell count is elevated. No evidence lactic acidosis -intravenous fluoroquinolone, monitor blood pressure and progression of sepsis Status: Acute (2) Acute prostatitis with hematuria: Problem comment: -cipro 400mg IV q12h -await cultures to direct therapy -inpatient supportive care for the severe sepsis -monitor for outflow obstruction Status: Acute (3) Acute cystitis: Problem comment: as in #2 Status: Acute (4) Hyponatremia: Problem comment: Monitor Status: Acute (5) Hypokalemia: Problem comment: Check magnesium, monitor Status: Acute (6) Hyperbilirubinemia: Problem comment: Check direct bili, monitor Status: Acute (7) Tobacco dependence: Problem comment: -2-3 packs a day -declined nicotine patch Status: Acute (8) Clubbing of fingers: Problem comment: Chronic finding that may have nothing to do with admission diagnosis. -in a smoker with chronic findings this could represent COPD, potentially a lung carcinoma, interstitial lung disease, bronchiectasis, IBD, thyrotoxicosis, Eisenmenger syndrome (right to left shunt) -this can be worked up as an outpatient depending on course Status: Acute Hospitalist- H&P: HPI History of Present Illness Date Seen: 05/26/25 Chief complaint: Back pain radiating to the abdomen, fever Narrative: ADMISSION HISTORY AND PHYSICAL - HOSPITALIST Chief Complaint: Dysuria, urinary urgency and frequency, back pain fevers chills HPI: 50-year-old white male with history of cigarette smoking who takes no daily medications presents with approximately a 3-4 day history of back pain, dysuria, urinary frequency and urgency and fevers and chills. He has had UTIs and sepsis in the past. Most recently 2021. 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 He does not have a primary care doctor and takes no interest in preventative healthcare. He states he is sexually active with his but otherwise has no history of STDs or new partners. He denies any anal penetration or sex with men. He has no history of a urinary catheter or being immunocompromised. When asked about his digital clubbing noted in his hands, he states he has had this since childhood. He has never had a doctor look into this. He denies having shortness of breath or exercise intolerance as a child. He has never been told his lips turned blue. He does feel like it is getting slightly worse over the last few years. He also states he has been having more dyspnea on exertion when he works his construction jobs. He said he thought it was related to his chronic back pain. ER COURSE: CT abdomen pelvis, fluids, IV antibiotics CODE STATUS: FULL CODE PCP: None EMERGENCY CONTACT PLAN: Sendy Mckeon Rel To Pat Cell I've updated the PFSH, medications and allergies in the Expanse tabs. INVESTIGATIONS: LABS/MICRO/ECG/IMAGING Blood pressure has been low normal 103/70, 100/66. Pulse rate has been consiste ntly elevated 108-122. Sinus tach. Respiratory rate 20 Pulse ox 98% on room air Weight 84.8 kilos, stated weight Temp 99? White blood cell count is 22.46, 89% neutrophils. Hemoglobin 15.5. Platelet count 194. CMP reflects a sodium of 131. Potassium 3.4. His bicarb is only 24. Creatinine is 1.2 which appears to be his baseline. His glucose is 118. His total bilirubin is mildly elevated at 1.7, otherwise his LFTs are within normal limits. CRP is 33.2/procalcitonin is 1.01 UA shows positive nitrite, 3+ leukocyte esterase, trace ketones greater than 100 white blood cells, moderate bacteria CT Abd/Pelvis Heterogeneously enhanced/enlarged hyperemic prostate. Adjacent mild stranding. Urinary bladder is decompressed however there is suggestion of circumferential thickening/adjacent stranding. Constellation of findings are concerning for acute prostatitis. BC x 2 and UC pending EKG - sinus tachycardia (likely LAE) REVIEW OF SYSTEMS: 12-point ROS completed with patient and negative unless otherwise stated in HPI or below. PHYSICAL EXAM: CONSTITUTIONAL: Conversive, good historian. A/O. Knows setting and context. GENERAL: Well-developed. No respiratory distress. VITAL SIGNS: see record. HEENT: Sclerae are anicteric. No petechiae. CARDIAC: rhythm is regular. There is no S3 or rub. No harsh murmurs. Upper extremities show moderate to severe digital clubbing without cyanosis. No pedal edema. PULM: good air entry with no wheeze. NEURO: Speech is fluent. A brief neurologic exam is negative. SKIN: No rashes, petechiae, concerning changes PSYCHIATRIC: Euthymic. ADMIT TO MEDSURG: FLOOR CARE DVT: Lovenox GI: PO intake Time spent: Today I spent 75 minutes seeing the patient, discussing the patient with ER staff, reviewing Expanse and EPIC notes/diagnostics, discussing the care plan with our care time that includes social work, PT/OT, pharmacy, RT, halfway and documenting my impressions and plan in the medical record. MEDICAL NECESSITY FOR HOSPITALIZATION Anticipated midnights in the hospital: 2-4 Admitting diagnosis: severe sepsis Risk of morbidity and mortality: moderate Acuity is characterized as high and reflected in: hypotension, likely bacteremic, electrolyte derangement, elevated bilirubin, smoking status and concern for further complications given clubbing. This patient will require hospital services as outlined in the assessment and plan in order to stabilize and be safely discharged to a lower level of care. Because of the risk and acuity as described above, this patient cannot be managed at a lower level of care. LENGTH OF STAY: 2 IP ? Anticipated LOS>2 midnights due to acuity of clinical presentation requiring inpatient level of care [facility] Medical History (Updated 05/26/25 @ 20:29 by Vandana Manning MD) Tobacco dependence ?F17.200 - Nicotine dependence, unspecified, uncomplicated (ICD-10) Clubbing of fingers ?R68.3 - Clubbing of fingers (ICD-10) Social History What is your current living situation?: I presently have a place to live Problems where you live: no known problems In the past 12 months, utilities in danger of being shut off: no In past 12 months, lack of transportation kept you from medical appts, meetings, work, or getting things needed for daily living: no In the past 12 mos, have been you worried that your food would run out before you had money to buy more?: never true In the past 12 mos, the food you bought just didn't last and you didn't have money to buy more?: never true Highest level of school completed/degree received: high school graduate Smoking Status: Current every day smoker What tobacco products do you use: cigarettes Do you use any of these nicotine containing products: None Second hand tobacco smoke exposure: No How often do you have a drink containing alcohol: monthly or less AUDIT-C Alcohol total score: 1 Non-prescribed substance use: denies use Caffeine: Yes How often does anyone, including family, friends and others, physically hurt you : never How often does anyone, including family, friends and others, insult or talk down to you: never How often does anyone, including family, friends and others, threaten you with harm: never How often does anyone, including family, friends and others, scream or curse at you: never service: No Meds Home Medications and Allergies Home Medications ?Medication ?Instructions ?Recorded ?Confirmed ?Type No Known Home Medications 05/26/2505/11 History Allergies Allergy/AdvReac Type Severity Reaction Status Date / Time No Known Allergies Allergy Verified 05/26/25 20:07 Exam Const: Vital Signs, click to edit/add: Vital Signs - 24 hr 05/26/25 15:54 05/26/25 18:08 05/26/25 18:15 Temperature 99.6 F Pulse Rate 108 H 117 H Pulse Rate [Pulse Oximeter] 122 H Respiratory Rate 20 Blood Pressure Blood Pressure [Ri ght Upper Arm] 103/70 Pulse Oximetry 98 97 [facility] 05/26/25 18:23 Temperature Pulse Rate 113 H Pulse Rate [Pulse Oximeter] Respiratory Rate Blood Pressure 100/66 Blood Pressure [Ri ght Upper Arm] Pulse Oximetry 98 Oxygen Delivery [facility] Hospitalist - H&P: Result Labs Labs: Short CBC 05/26/25 Range/Units 16:30 WBC 22.46 H (4.50-11.00) K/uL Hgb 15.5 (13.5-17.5) gm/dL Hct 46.7 (37.0-53.0) % Plt Count 194 (140-440) K/uL BMP 05/26/25 16:30 Sodium 131 L Potassium 3.4 L Chloride 98 Carbon Dioxide 24 BUN 13 Creatinine 1.2 Glucose 118 H Calcium 8.4 Liver Function 05/26/25 Range/Units 16:30 Total Bilirubin 1.7 H (0.1-1.5) mg/dL AST 20 (12-35) U/L ALT 15 (4-50) U/L Alkaline Phosphatase 102 (40-150) U/L Albumin 3.9 (3.3-5.0) g/dL Urine 05/26/25 Range/Units 15:52 Urine Color Chitra A (Yellow) Urine Appearance Cloudy A (Clear) Urine pH 6.0 (5.0-8.5) Ur Specific [place] >= 1.030 (1.000-1.030) Urine Protein 3+ A (Negative) Urine Glucose (UA) Negative (Negative)
[2025-05-26] MEDS: CIPROFLOXACIN 400 MG/200 ML PIGGYBACK 200 MG IVPB (19:14)
[2025-05-26 20:31] LABS: Bilirubin Direct* 0.6 mg/dL (0.0-0.5)
[2025-05-26] MEDS: ENOXAPARIN 40 MG/0.4 ML INJ SUBCUT (21:35)
[2025-05-27] VITALS (9 sets, daily range): BP systolic 96–119; BP diastolic 60–75; PULSE 60–98; RESP 16–20; TEMP 36.9–37.7; O2SAT 96–98
[2025-05-27 06:28] LABS: Hematocrit* 39.2 % (37.0-53.0); Hemoglobin* 12.9 gm/dL (13.5-17.5); Immature Granulocytes Pct Auto 1.2 %; Mean Corpuscular HGB Conc 33 gm/dL (32-36); Mean Corpuscular Hemoglobin 30 pg (26-34); Mean Corpuscular Volume 91 fL (80-100); RDW Coefficient of Variation % 14.2 % (11.5-15.5); Red Blood Count* 4.31 m/uL (4.30-5.90); White Blood Count* 18.66 K/uL (4.50-11.00)
[2025-05-27 06:33] LABS: Immature Granulocytes Abs Auto 0.20 K/uL (0.00-0.30); Lymphocytes Absolute Auto 0.90 K/uL (0.90-2.90); Slide Review Reflex No
[2025-05-27] MEDS: CIPROFLOXACIN 400 MG/200 ML PIGGYBACK 200 MG IVPB ×2 (06:38→18:52)
[2025-05-27 06:44] LABS: Albumin* 3.0 g/dL (3.3-5.0); Chloride* 104 mmol/L (96-114); Sodium* 132 mmol/L (135-149)
[2025-05-27 06:45] LABS: Potassium* 3.7 mmol/L (3.6-5.1)
[2025-05-27 06:47] LABS: Blood Urea Nitrogen* 12 mg/dL (7-30); Creatinine* 1.0 mg/dL (0.5-1.5); Est. Creatinine Clearance* 85.50; Estimated Glomerular Filt Rate 92 ml/min
[2025-05-27 06:48] LABS: Alanine Aminotransferase* 10 U/L (4-50); Alkaline Phosphatase* 85 U/L (40-150); Anion Gap 5 mEq/L (7-15); Aspartate Amino Transferase* 17 U/L (12-35); Bilirubin Direct* 0.4 mg/dL (0.0-0.5); Bilirubin Total* 1.1 mg/dL (0.1-1.5); Calcium* 7.5 mg/dL (8.4-10.6); Carbon Dioxide* 23 mmol/L (20-32); Glucose* 108 mg/dL (60-115); Total Protein* 6.0 g/dL (6.0-8.3)
--- NOTE | 2025-05-27 14:38 | P.IMPN_ITS ---
Assessment and Plan Assessment and plan (1) Severe sepsis: Problem comment: -criteria is met with a significant drop from his baseline blood pressure down to 100-103 systolic from a baseline of 140-150. -his heart rate is elevated, his respiratory rate is elevated, and his white blood cell count is elevated. No evidence lactic acidosis -intravenous fluoroquinolone, monitor blood pressure and progression of sepsis 05/27/2025: Much improved. Continue with supportive efforts while awaiting cultures. Increase activities as tolerated. Status: Acute (2) Acute prostatitis with hematuria: Problem comment: -cipro 400mg IV q12h -await cultures to direct therapy -inpatient supportive care for the severe sepsis -monitor for outflow obstruction Status: Acute (3) Acute cystitis: Problem comment: as in #2 05/27/2025: Gram-negative carlotta growing in urine culture. Await ID and sensitivities. Status: Acute (4) Hyponatremia: Problem comment: Monitor Status: Acute (5) Hypokalemia: Problem comment: Check magnesium, monitor Status: Acute (6) Hyperbilirubinemia: Problem comment: Check direct bili, monitor Status: Acute (7) Tobacco dependence: Problem comment: -2-3 packs a day -declined nicotine patch Status: Acute (8) Clubbing of fingers: Problem comment: Chronic finding that may have nothing to do with admission diagnosis. -in a smoker with chronic findings this could represent COPD, potentially a lung carcinoma, interstitial lung disease, bronchiectasis, IBD, thyrotoxicosis, Eisenmenger syndrome (right to left shunt) -this can be worked up as an outpatient depending on course Status: Acute Plan 1. Reviewed impression, plans, recommendations with patient 2. Answered his questions are satisfaction 3. Awaiting culture results 4. Patient agreeable with above stated plans and recommendations Total Time Spent Total Time Spent: 35 minutes Subjective Date Seen: 05/27/25 Interval history: Admission history of present illness: ?50-year-old white male with history of cigarette smoking who takes no daily medications presents with approximately a 3-4 day history of back pain, dysuria, urinary frequency and urgency and fevers and chills. He has had UTIs and sepsis in the past. Most recently 2021. 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 He does not have a primary care doctor and takes no interest in preventative healthcare. He states he is sexually active with his but otherwise has no history of STDs or new partners. He denies any anal penetration or sex with men. He has no history of a urinary catheter or being i mmunocompromised. ?When asked about his digital clubbing noted in his hands, he states he has had this since childhood. He has never had a doctor look into this. He denies having shortness of breath or exercise intolerance as a child. He has never been told his lips turned blue. He does feel like it is getting slightly worse over the last few years. He also states he has been having more dyspnea on exertion when he works his construction jobs. He said he thought it was related to his chronic back pain. ?ER COURSE: CT abdomen pelvis, fluids, IV antibiotics ?CODE STATUS: FULL CODE? 05/27/2025, hospital day 2. Patient tells me he feels much improved. Discomfort is better managed at this juncture. Appetite is resuming. Tolerating increased activity. Exam Narrative: Exam Narrative: Examined patient his hospital room. Friendly, articulate, cooperative. Alert and oriented x4. Independent with transfers, station, gait. Lungs clear to auscultation. Heart tones with regular rhythm. Abdomen benign. Extremities without edema. Blood cultures negative to date. Urine cultures growing out Gram-negative rods. Id and sensitivities still pending. Const: Vital Signs, click to edit/add: Vital Signs - 24 hr 05/26/25 15:54 05/26/25 18:08 05/26/25 18:15 Temperature 99.6 F Pulse Rate 108 H 117 H Pulse Rate [Pulse Oximeter] 122 H Respiratory Rate 20 Blood Pressure Blood Pressure [Ri ght Arm] Blood Pressure [Ri ght Upper Arm] 103/70 Pulse Oximetry 98 97 95 Oxygen Delivery Me thod Room Air 05/26/25 18:23 05/26/25 18:24 05/26/25 18:30 Temperature Pulse Rate 113 H 110 H 107 H Pulse Rate [Pulse Oximeter] Respiratory Rate Blood Pressure 100/66 Blood Pressure [Ri ght Arm] Blood Pressure [Ri ght Upper Arm] Pulse Oximetry 98 97 96 Oxygen Delivery Me thod 05/26/25 18:31 05/26/25 18:47 05/26/25 19:00 Temperature Pulse Rate 107 H 108 H 105 H Pulse Rate [Pulse Oximeter] Respiratory Rate Blood Pressure 106/62 Blood Pressure [Ri ght Arm] Blood Pressure [Ri ght Upper Arm] Pulse Oximetry 96 97 94 Oxygen Delivery Me thod 05/26/25 19:05 05/26/25 19:15 05/26/25 20:00 Temperature 100.8 F H Pulse Rate 105 H 107 H Pulse Rate [Pulse Oximeter] 109 H Respiratory Rate 20 Blood Pressure Blood Pressure [Ri ght Arm] 105/67 Blood Pressure [Ri ght Upper Arm] Pulse Oximetry 95 96 97 Oxygen Delivery Me thod Room Air 05/26/25 20:00 05/26/25 20:03 05/26/25 20:03 Temperature 100.8 F H Pulse Rate 109 H Pulse Rate [Pulse Oximeter] 109 H Respiratory Rate 20 20 Blood Pressure Blood Pressure [Ri ght Arm] 105/67 Blood Pressure [Ri ght Upper Arm] Pulse Oximetry 97 97 Oxygen Delivery Me thod Room Air Room Air 05/26/25 23:00 05/26/25 23:26 05/27/25 03:00 Temperature 100.4 F H 99.9 F H Pulse Rate Pulse Rate [Pulse Oximeter] 100 100 90 Respiratory Rate 18 18 20 Blood Pressure Blood Pressure [Ri ght Arm] 110/64 111/60 Blood Pressure [Ri ght Upper Arm] Pulse Oximetry 97 97 Oxygen Delivery Me thod Room Air Room Air 05/27/25 08:00 Temperature 98.5 F Pulse Rate Pulse Rate [Pulse Oximeter] 87 Respiratory Rate 18 Blood Pressure Blood Pressure [Ri ght Arm] 108/68 Blood Pressure [Ri ght Upper Arm] Pulse Oximetry 96 Oxygen Delivery Me thod Room Air Labs Labs: Laboratory Results - last 24 hr 05/26/25 05/26/25 05/26/25 15:52 16:30 20:00 WBC 22.46 H RBC 5.19 Hgb 15.5 Hct 46.7 MCV 90 MCH 30 MCHC 33 RDW Coeff of Suzanne 13.8 Plt Count 194 Neut % (Auto) 89.7 H Lymph % (Auto) 3.6 L [place] % (Auto) 5.3 Eos % (Auto) 0.0 Baso % (Auto) 0.1 Neut # (Auto) 20.10 H Lymph # (Auto) 0.80 L [place] # (Auto) 1.20 H Eos # (Auto) 0.00 Baso # (Auto) 0.00 Abs Immat Gran (auto) 0.30 Imm/Tot Granulo (auto) 1.3 Diff Slide Review Acceptable Review Sodium 131 L Potassium 3.4 L Chloride 98 Carbon Dioxide 24 Anion Gap 9 BUN 13 Creatinine 1.2 Estimated Creat Clear 71.25 Estimated GFR 74 Glucose 118 H Lactate 1.8 Calcium 8.4 Phosphorus Magnesium 2.2 Total Bilirubin 1.7 H Direct Bilirubin 0.6 H AST 20 ALT 15 Alkaline Phosphatase 102 C-Reactive Protein 33.2 H Total Protein 7.6 Albumin 3.9 Procalcitonin 1.01 H Urine Color Chitra A Urine Appearance Cloudy A Urine pH 6.0 Ur Specific [place] >= 1.030 Urine Protein 3+ A Urine Glucose (UA) Negative Urine Ketones Trace A Urine Blood 3+ A Urine Nitrite Positive A Urine Bilirubin 2+ A Urine Urobilinogen 1.0 Ur Leukocyte Esterase 3+ A Urine RBC 10-25 A Urine WBC >100 A Ur Squamous Epith Cells Few Amorphous Sediment Few A Urine Bacteria Moderate A Lab Acknowledgement Test Added 05/27/25 06:02 WBC 18.66 H RBC 4.31 Hgb 12.9 L Hct 39.2 MCV 91 MCH 30 MCHC 33 RDW Coeff of Suzanne 14.2 Plt Count 147 Neut % (Auto) 86.2 H Lymph % (Auto) 4.9 L [place] % (Auto) 7.6 Eos % (Auto) 0.0 Baso % (Auto) 0.1 Neut # (Auto) 16.10 H Lymph # (Auto) 0.90 [place] # (Auto) 1.40 H Eos # (Auto) 0.00 Baso # (Auto) 0.00 Abs Immat Gran (auto) 0.20 Imm/Tot Granulo (auto) 1.2 Diff Slide Review Sodium 132 L Potassium 3.7 Chloride 104 Carbon Dioxide 23 Anion Gap 5 L BUN 12 Creatinine 1.0 Estimated Creat Clear 85.50 Estimated GFR 92 Glucose 108 Lactate Calcium 7.5 L Phosphorus 3.0 Magnesium Total Bilirubin 1.1 Direct Bilirubin 0.4 AST 17 ALT 10 Alkaline Phosphatase 85 C-Reactive Protein 31.4 H Total Protein 6.0 Albumin 3.0 L Procalcitonin Urine Color Urine Appearance Urine pH Ur Specific [place] Urine Protein Urine Glucose (UA) Urine Ketones Urine Blood Urine Nitrite Urine Bilirubin Urine Urobilinogen Ur Leukocyte Esterase Urine RBC Urine WBC Ur Squamous Epith Cells Amorphous Sediment Urine Bacteria Lab Acknowledgement
--- NOTE | 2025-05-27 19:05 | PC.NURSE ---
Nursing Care Hours: [id number] Pt this shift calm and cooperative. Fatigued and sleeping in bed this whole shift, using urinal in bed. BM this shift, continent. Pain reported to flank area, declined medicine. Urine dark and concentrated and small amounts each time. Bladder scan showed 77ml retained post void. Encourage oral intake. IV occluded and new one placed. Pt has low appetite and eating less than 50% of meals. Pt reports gurgling stomach immediately after eating and then urgency for BM. Discussed BRAT diet options.
[2025-05-27] MEDS: ENOXAPARIN 40 MG/0.4 ML INJ SUBCUT (20:43)
[2025-05-27] MEDS: SODIUM CHLORIDE 0.9 % (FLUSH) 10 ML SYRINGE 5 ML IVF (20:46)
[2025-05-28 01:15] VITALS: BP 112/79; PULSE 85; RESP 16; TEMP 37; O2SAT 95
[2025-05-28 05:55] LABS: CDIFFEPI 027 PRESUMPTIVE NEGATIVE (Negative)
[2025-05-28 05:56] LABS: C.Difficile POSITIVE (Negative)
[2025-05-28 06:02] LABS: Hematocrit* 34.0 % (37.0-53.0); Hemoglobin* 11.4 gm/dL (13.5-17.5); Immature Granulocytes Abs Auto 0.03 K/uL (0.00-0.30); Immature Granulocytes Pct Auto 0.3 %; Mean Corpuscular HGB Conc 34 gm/dL (32-36); Mean Corpuscular Hemoglobin 30 pg (26-34); Mean Corpuscular Volume 90 fL (80-100); RDW Coefficient of Variation % 14.5 % (11.5-15.5); Red Blood Count* 3.77 m/uL (4.30-5.90); White Blood Count* 9.06 K/uL (4.50-11.00)
[2025-05-28 06:18] LABS: Lymphocytes Absolute Auto 0.70 K/uL (0.90-2.90); Slide Review Reflex No
[2025-05-28 06:29] LABS: Albumin* 2.5 g/dL (3.3-5.0); Chloride* 108 mmol/L (96-114)
[2025-05-28 06:30] LABS: Potassium* 3.5 mmol/L (3.6-5.1); Sodium* 133 mmol/L (135-149)
[2025-05-28 06:32] LABS: Blood Urea Nitrogen* 12 mg/dL (7-30); Creatinine* 0.7 mg/dL (0.5-1.5); Est. Creatinine Clearance* 122.14; Estimated Glomerular Filt Rate 112 ml/min
[2025-05-28 06:33] LABS: Alanine Aminotransferase* 18 U/L (4-50); Alkaline Phosphatase* 81 U/L (40-150); Anion Gap 5 mEq/L (7-15); Aspartate Amino Transferase* 34 U/L (12-35); Bilirubin Direct* 0.4 mg/dL (0.0-0.5); Bilirubin Total* 0.7 mg/dL (0.1-1.5); Calcium* 7.5 mg/dL (8.4-10.6); Carbon Dioxide* 20 mmol/L (20-32); Glucose* 91 mg/dL (60-115); Total Protein* 5.4 g/dL (6.0-8.3)
--- NOTE | 2025-05-28 06:34 | PC.NURSE ---
Pt alert and oriented x3. Afebrile. Pt reports pain only with urination, PRN medications offered, pt declined. Pt had multiple loose stools overnight. Updated MD Borrego (Kenneth), orders given to collect stool sample for c-diff. Pt was + for c-diff, contact precautions placed, updated MD Borrego, orders placed for oral vancomycin. Pt is up Ind, voiding and tolerating a regular diet. Pt slept poorly throughout night due to frequent urination and loose stools.
[2025-05-28] MEDS: CIPROFLOXACIN 400 MG/200 ML PIGGYBACK 200 MG IVPB (07:35)
[2025-05-28 07:45] VITALS: PULSE 74
[2025-05-28 08:45] VITALS: PULSE 84; RESP 18
[2025-05-28 09:00] VITALS: BP 121/82; PULSE 84; RESP 18; TEMP 36.9; O2SAT 98
[2025-05-28] MEDS: VANCOMYCIN 125 MG CAPSULE PO ×2 (09:23→12:44)
[2025-05-28 11:00] VITALS: BP 122/84; PULSE 80; RESP 18; O2SAT 98
--- NOTE | 2025-05-28 14:38 | PC.NURSE ---
Nursing Care Hours: [id number] Pt this shift independent, alert and oriented. No c/o pain. Pt reports loose stools without blood. Pt and spouse instructed on c.diff precautions. Pt voiding small amounts at a time. Discussed weight gain during IV fluid infusion. Pt denies feeling swelling in hands or feet but does report feeling restricted breathing while laying supine. IS shows pt can do 2500ml with excellent effort, no coughing. LS clear and spO2 WNL. Pt refusing meals d/t BM urgency. Product Inspection Coordinator encouraged pt to keep up hydration and eating well balanced meal, follow BRAT diet if effective. IV removed for discharge. Instructions went over with pt and spouse. Instructed to call clinic to establish with PCP and schedule f/u appt.
--- NOTE | 2025-05-28 14:40 | PM.DS1 ---
DS: Providers Provider Date Seen: 05/28/25 Date of admission: 05/26/25 20:27 Primary care physician: Not a Local Provider Admitting Clinician: Vandana Manning MD Attending Physician on discharge: Chidi Robles MD Date of Discharge: 05/28/25 DS: Diagnosis Discharge Diagnosis (1) Severe sepsis: Status: Acute Problem details: -criteria is met with a significant drop from his baseline blood pressure down to 100-103 systolic from a baseline of 140-150. -his heart rate is elevated, his respiratory rate is elevated, and his white blood cell count is elevated. No evidence lactic acidosis -intravenous fluoroquinolone, monitor blood pressure and progression of sepsis 05/27/2025: Much improved. Continue with supportive efforts while awaiting cultures. Increase activities as tolerated. (2) Acute prostatitis with hematuria: Status: Acute Problem details: -cipro 400mg IV q12h -await cultures to direct therapy -inpatient supportive care for the severe sepsis -monitor for outflow obstruction -recommend outpatient urology consultation given the severity of his illness and presentation, to be set up when he sees primary wound care center consultant -discussed the same with patient and his (3) Acute cystitis: Status: Acute Problem details: as in #2 05/27/2025: Gram-negative carlotta growing in urine culture. Await ID and sensitivities. (4) C. difficile enteritis: Status: Acute Problem details: 05/28/2025: Diarrhea positive for C diff. started oral vancomycin on 05/28/2025. Tolerating. Will need to treat with 2 weeks of oral vancomycin beyond the time of his treatment with the oral ciprofloxacin. Will be on oral ciprofloxacin for 3 weeks for a retic a nagy of the prostatitis and cystitis. Thus will be on oral vancomycin for a total of 5 weeks. (5) Tobacco dependence: Status: Acute Problem details: -2-3 packs a day -declined nicotine patch (6) Clubbing of fingers: Status: Acute Problem details: Chronic finding that may have nothing to do with admission diagnosis. -in a smoker with chronic findings this could represent COPD, potentially a lung carcinoma, interstitial lung disease, bronchiectasis, IBD, thyrotoxicosis, Eisenmenger syndrome (right to left shunt) -this can be worked up as an outpatient depending on course (7) Hypokalemia: Status: Acute Problem details: Check magnesium, monitor (8) Hyponatremia: Status: Acute Problem details: Monitor (9) Hyperbilirubinemia: Status: Acute Problem details: Check direct bili, monitor DS: Summary Hospital Course Hospital Course: Admission history of present illness: ?50-year-old white male with history of cigarette smoking who takes no daily medications presents with approximately a 3-4 day history of back pain, dysuria, urinary frequency and urgency and fevers and chills. He has had UTIs and sepsis in the past. Most recently 2021. 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 He does not have a primary care doctor and takes no interest in preventative healthcare. He states he is sexually active with his but otherwise has no history of STDs or new partners. He denies any anal penetration or sex with men. He has no history of a urinary catheter or being immunocompromised. ?When asked about his digital clubbing noted in his hands, he states he has had this since childhood. He has never had a doctor look into this. He denies having shortness of breath or exercise intolerance as a child. He has never been told his lips turned blue. He does feel like it is getting slightly worse over the last few years. He also states he has been having more dyspnea on exertion when he works his construction jobs. He said he thought it was related to his chronic back pain. ?ER COURSE: CT abdomen pelvis, fluids, IV antibiotics ?CODE STATUS: FULL CODE? 05/27/2025, hospital day 2. Patient tells me he feels much improved. Discomfort is better managed at this juncture. Appetite is resuming. Tolerating increased activity. 05/28/2025, hospital day 3. Patient is passing stools every time he urinates. Stools are loose and foul smelling. Stool positive for C diff antigen. Started on oral vancomycin and tolerating. Urine culture grew out E coli sensitive to ciprofloxacin. Switched him from IV to oral ciprofloxacin. Discharge plan as specified below. Status at Discharge Functional status at discharge: independent ambulation Overall status at discharge: patient is not back to baseline Time Spent with Patient Time attestation: Total time spent providing and/or coordinating discharge services: Time spent: Greater than 30 minutes Exam Narrative: Exam Narrative: Examined patient his hospital room. Friendly, articulate, cooperative. Alert and oriented x4. Independent with transfers, station, gait. Lungs clear to auscultation. Heart tones with regular rhythm. Abdomen benign. Extremities without edema. Blood cultures negative to date. Urine cultures growing out Gram-negative rods. Grew out E coli sensitive to ciprofloxacin. Stool positive for C diff. Const: Vital Signs, click to edit/add: Vital Signs - 24 hr 05/27/25 15:00 05/27/25 15:00 05/27/25 15:45 Temperature 99.2 F Pulse Rate 89 Pulse Rate [Pulse Oximeter] 96 98 Respiratory Rate 18 18 Blood Pressure [Ri ght Arm] 114/72 Pulse Oximetry 97 Oxygen Delivery Me thod Room Air 05/27/25 19:40 05/27/25 22:16 05/27/25 22:36 Temperature 99.6 F 98.6 F Pulse Rate 60 Pulse Rate [Pulse Oximeter] 89 90 Respiratory Rate 16 16 Blood Pressure [Ri ght Arm] 116/74 119/75 Pulse Oximetry 97 98 Oxygen Delivery Ny thod Room Air Room Air 05/28/25 01:15 05/28/25 07:45 05/28/25 08:45 Temperature 98.6 F Pulse Rate 74 Pulse Rate [Pulse Oximeter] 85 84 Respiratory Rate 16 18 Blood Pressure [Ri ght Arm] 112/79 Pulse Oximetry 95 Oxygen Delivery Me thod Room Air 05/28/25 09:00 05/28/25 11:00 Temperature 98.5 F Pulse Rate Pulse Rate [Pulse Oximeter] 84 80 Respiratory Rate 18 18 Blood Pressure [Ri ght Arm] 121/82 122/84 Pulse Oximetry 98 98 Oxygen Delivery Ny thod Room Air Room Air DS: Data Data Completed and Pending Labs on day of discharge: Labs from last 24 hours 05/28/25 05/28/25 05:42 02:35 WBC 9.06 RBC 3.77 L Hgb 11.4 L Hct 34.0 L MCV 90 MCH 30 MCHC 34 RDW Coeff of Suzanne 14.5 Plt Count 126 L Neut % (Auto) 83.8 H Lymph % (Auto) 7.8 L [place] % (Auto) 7.7 Eos % (Auto) 0.3 Baso % (Auto) 0.1 Neut # (Auto) 7.60 H Lymph # (Auto) 0.70 L [place] # (Auto) 0.70 Eos # (Auto) 0.03 Baso # (Auto) 0.01 Abs Immat Gran (auto) 0.03 Imm/Tot Granulo (auto) 0.3 Sodium 133 L Potassium 3.5 L Chloride 108 Carbon Dioxide 20 Anion Gap 5 L BUN 12 Creatinine 0.7 Estimated Creat Clear 122.14 Estimated GFR 112 Glucose 91 Calcium 7.5 L Phosphorus 2.1 L Total Bilirubin 0.7 Direct Bilirubin 0.4 AST 34 ALT 18 Alkaline Phosphatase 81 C-Reactive Protein 25.5 H Total Protein 5.4 L Albumin 2.5 L Stl C. diff Tox B Gene POSITIVE A* Stl C. diff [id number] PRESUMPTIVE NEGATIVE Preliminary micro results at discharge 05/26/25 16:42 Blood Culture - Preliminary Blood NO GROWTH AFTER 24 HOURS 05/26/25 16:30 Blood Culture - Preliminary Blood NO GROWTH AFTER [address] scan of abdomen and pelvis: Attestation: I have reviewed the pertinent imaging results. Radiologist's impression: Examined patient his hospital room. Friendly, articulate, cooperative. Alert and oriented x4. Independent with transfers, station, gait. Lungs clear to auscultation. Heart tones with regular rhythm. Abdomen benign. Extremities without edema. Blood cultures negative to date. Urine cultures growing out Gram-negative rods. Id and sensitivities still pending. Discharge Plan Discharge Disposition: Home, Self-Care Date of Admission: 05/26/25 20:27 Attending Provider on Discharge: Chidi Robles Primary Care Provider: Provider,Not a Local Condition: Improved Anticipated Discharge Date/Time: 05/28/25 12:05 Discharge Medications: New vancomycin 125 mg Capsule 125 mg PO QID 35 Days Qty: 140 0RF Rx Instructions: To treat C Diff infection, 2 weeks beyond completion of treatment for the prostatitis ciprofloxacin HCl 250 mg tablet 250 mg PO BID 21 Days Qty: 42 0RF Rx Instructions: To eradicate severe prostatitis Discharge Orders: Discharge Order (Routine); Ordered 05/28/25 Ordered By: Chidi Robles Patient Education: Ciprofloxacin (By mouth), Vancomycin (By mouth), Prostatitis (DC), C. Diff (Clostridioides Difficile) Infection (DC) Additional Instructions: 1. Follow-up with primary wound care center consultant in 5-7 days 2. May return to work without restrictions on Friday06/06/2025 3. Return to clinic or hospital sooner if needed 4. Recommend smoking cessation for short and long-term health benefits Activity Level: No Restrictions Discharge Diet: Regular Follow Up Appointments: Provider,Not a Local [Primary Care Provider, Family Practice] Referral Note: On Friday please call and make an appointment to see a Primary Care Provider. If you would like to establish care with [facility] Location call [phone]. Forms: [employer] Info Instructions
== END 2025-05-28 13:12 | disposition home or self-care (01) | DRG 720 ==
LOC: ED 19:14 → MEDSURG 19:59
PROVIDERS: Internal Medicine; Admitting Provider Family Medicine; Emergency Provider Internal Medicine; Visit Provider Family Medicine
DX: A41.9 Sepsis, unspecified organism (principal); N41.0 Acute prostatitis; N30.01 Acute cystitis with hematuria; R65.20 Severe sepsis without septic shock; A04.72 Enterocolitis due to Clostridium difficile, not specified as recurrent; B96.89 Other specified bacterial agents as the cause of diseases classified elsewhere; E87.6 Hypokalemia; E87.1 Hypo-osmolality and hyponatremia; E80.6 Other disorders of bilirubin metabolism; F17.210 Nicotine dependence, cigarettes, uncomplicated; R68.3 Clubbing of fingers
CPT/HCPCS: 36415; 51798; 74177; 80053; 80069; 80076; 81001; 81003; 82248; 83605; 83735; 84145; 85025; 86140; 87040; 87086; 87493; 93005; 99283; 99285; J0696; J0744; J1650; J7030; Q9967

== ENCOUNTER 2025-06-28 13:29 | Emergency (ER) | payer BC, SELFPAY ==
[2025-06-28 13:41] VITALS: BP 124/91; PULSE 78; RESP 18; TEMP 36.7; O2SAT 98; BMI 38.1
--- NOTE | 2025-06-28 14:12 | CRLHL7_ITS ---
For Patients: As a result of the Century Cures Act, medical imaging exams and procedure reports are released immediately into your electronic medical record. You may view this report before your referring provider. If you have questions, please contact your health care provider. INDICATION: Right flank pain. COMPARISON: 05/26/2025, 12/12/2024, 09/09/2022, 05/13/2021 TECHNIQUE: CT of the abdomen and pelvis with intravenous contrast. Multiplanar axial, coronal, and sagittal reformats were reconstructed. Contrast: 95 mL Isovue 370. FINDINGS: Lung bases: Mild smooth interlobular septal thickening often seen with pulmonary edema. No pleural effusion in the bases. Liver: There are few scattered subcentimeter low-density lesions in the liver that are similar to prior exam and distribution and consistent with cysts. No worrisome liver lesions. Gallbladder and bile ducts: Normal gallbladder. No bile duct dilation. Pancreas: Normal. Spleen: Normal. Adrenal glands: Normal. Kidneys: Normal overall renal size and position. Unchanged right upper pole renal cysts. Left posterior mid kidney cyst measures about 5 mm, slightly larger than 202. Similar small left lower pole cyst. No solid renal mass. No calculi. No urinary tract dilation. Urinary bladder: Normal. Pelvis: No cyst or mass. Vessels: Mild atherosclerosis. No aneurysm. Patent mesenteric arteries and veins. Bowel: No dilated or inflamed bowel. Normal appendix. Minimal fecalization of some of the distal small bowel contents without dilatation may reflect dietary habits. Mild stool burden. Lymph nodes: No adenopathy. Peritoneum: No ascites. Abdominal wall: No bowel containing hernia. Prior right inguinal hernia repair. Mild diastasis at the umbilicus. Bones: No fractures. No focal worrisome bone lesions. IMPRESSION: No acute or worrisome findings on CT of the abdomen and pelvis. No specific CT explanation seen for right-sided flank pain. Please note that all CT scans at this facility use dose modulation, iterative reconstruction, and/or weight-based dosing when appropriate to reduce radiation dose to as low as reasonably achievable. Dictated by Eliza Conrad MD @ 06/28/2025 2:48:03 PM (Electronically Signed)
--- NOTE | 2025-06-28 14:21 | ED_ITS ---
HPI - General Adult General Date Seen: 06/28/25 Chief complaint: Flank Pain Stated complaint: R side pain Time Seen by Provider: 06/28/25 14:01 Source: patient Mode of arrival: ambulatory Limitations: no limitations History of Present Illness HPI narrative: Patient is 50-year-old male with no chronic medical problems presenting to the emergency department for right flank pain. He was recently hospitalized for acute prostatitis, severe sepsis, C diff and discharged 05/28/2025. He has been doing well since then. Insert fee states 3 days ago he suddenly woke up in felt low back pain that is new for him. He states over the past 2 days he did state he wakes up he is low back pain all across his lower back around L4 region that then Tramaine disc becomes his right low back that radiates up to his right flank. He states he has had kidney stones before and this does not feel like his previous kidney stones. Does state the pain is sharp though. He states he feels like he tore a muscle in his back but denies any recent heavy lifting or possible injuries. States he has not take any pain medication. Due to his recent hospitalization he was concerned and wanted to get re-evaluated to make sure he is not becoming sick again. Has not noticed any fevers or chills. Denies chest pain, shortness of breath, abdominal pain, dysuria, polyuria, hematuria, saddle anesthesia. Does have some mild numbness to his right leg but he states is chronic. Has not had any urinary retention or incontinence. Related Data Previous Rx's ?Medication ?Instructions ?Recorded ciprofloxacin HCl 250 mg tablet 250 mg PO BID 21 days #42 tabs 05/28/25 vancomycin 125 mg capsule 125 mg PO QID 35 days #140 c aps 05/28/25 oxycodone 5 mg tablet 5 mg PO Q6H PRN pain #12 tab s 06/28/25 Allergies Allergy/AdvReac Type Severity Reaction Status Date / Time No Known Allergies Allergy Verified 06/01/25 11:37 Review of Systems Status of ROS: Reports: 10 or more systems reviewed and unremarkable except as noted in History and below [facility] Medical History Tobacco dependence ?F17.200 - Nicotine dependence, unspecified, uncomplicated (ICD-10) Clubbing of fingers ?R68.3 - Clubbing of fingers (ICD-10) Social History What is your current living situation?: I presently have a place to live Problems where you live: no known problems In the past 12 months, utilities in danger of being shut off: no In past 12 months, lack of transportation kept you from medical appts, meetings, work, or getting things needed for daily living: no In the past 12 mos, have been you worried that your food would run out before you had money to buy more?: never true In the past 12 mos, the food you bought just didn't last and you didn't have money to buy more?: never true Highest level of school completed/degree received: high school graduate Smoking Status: Current every day smoker What tobacco products do you use: cigarettes Do you use any of these nicotine containing products: None Second hand tobacco smoke exposure: No How often do you have a drink containing alcohol: monthly or less AUDIT-C Alcohol total score: 1 Non-prescribed substance use: denies use Caffeine: Yes How often does anyone, including family, friends and others, physically hurt you : never How often does anyone, including family, friends and others, insult or talk down to you: never How often does anyone, including family, friends and others, threaten you with harm: never How often does anyone, including family, friends and others, scream or curse at you: never service: No Exam Narrative: Exam Narrative: Const: Well-nourished, Well-developed, in moderate distress Eyes: PERRL, no conjunctival injection, and symmetrical lids HENT: Atraumatic external nose and ears. Moist mucous membranes. Neck: Symmetric, trachea midline, No thyromegaly. CVS: RRR, No murmurs or gallops. Peripheral pulses 2+ and equal in all extremities RESP: Unlabored respiratory effort. Clear to auscultation bilaterally. GI: Nontender/Nondistended, No rebound or guarding. MSK:Extremities w/o deformity, Normal Active ROM Skin: Warm, Dry. No rashes or lesions. Neuro: Normal Muscle tone, No focal neurological deficits. Psych: Awake, Alert, & Oriented x3. Appropriate mood and affect. Const: Vital Signs, click to edit/add: Vital Signs - 24 hr 06/28/25 13:41 Temperature 98.1 F Pulse Rate [Right Pulse Oximeter] 78 Respiratory Rate 18 Blood Pressure [Ri ght Upper Arm] 124/91 H Pulse Oximetry 98 Course Vital Signs Vital signs: Initial Vital Signs Temperature 98.1 F 06/28/25 13:41 Temperature Source Temporal Artery Scan 06/28/25 13:41 Pulse Rate 78 06/28/25 13:41 Respiratory Rate 18 06/28/25 13:41 Blood Pressure 124/91 H 06/28/25 13:41 Blood Pressure Mean 102 06/28/25 13:41 Blood Pressure Position Sitting 06/28/25 13:41 Pulse Oximetry 98 06/28/25 13:41 Vital Signs Temperature 98.1 F 06/28/25 13:41 Pulse Rate 78 06/28/25 13:41 Respiratory Rate 18 06/28/25 13:41 Blood Pressure 124/91 H 06/28/25 13:41 Pulse Oximetry 98 06/28/25 13:41 Temperature 98.1 F 06/28/25 13:41 Pulse Rate 78 06/28/25 13:41 Respiratory Rate 18 06/28/25 13:41 Blood Pressure 124/91 H 06/28/25 13:41 Pulse Oximetry 98 06/28/25 13:41 Medical Decision Making MDM Narrative Medical decision making narrative: Patient is a 50-year-old male presenting to the emergency department for left flank pain. The differential diagnosis of flank pain including vascular causes such as aortic aneurysm, renal vascular issues, aortic dissection, mesenteric ischemia, nephrolithiasis, ureter stricture, pyelonephritis, along with several other GI causes. Considering the pain starts in low back and will radiate the seems more likely to be musculoskeletal. Will do a CT scan though and to look for abnormalities with muscle kidney stones. Also do is shows lipase for possible pancreatitis. CBC, CMP, urinalysis also ordered. Patient declines pain medication. Lab work returned showing no concerning abnormalities. CT scan interpreted by myself and the radiologist independently shows no acute concerning abnormalities. He is doing well in given discharged home at this time. He is agreeable to this plan. I will provide a oxycodone as needed for pain. He states he will pick it up if the pain gets bad enough. When trying I do believe symptoms are musculoskeletal in nature. Lab Data Labs: Lab Results 06/28/25 06/28/25 06/28/25 Range/Units 14:13 14:16 14:25 WBC 10.65 (4.50-11.00) K/uL RBC 5.16 (4.30-5.90) m/uL Hgb 15.4 (13.5-17.5) gm/dL Hct 46.9 (37.0-53.0) % MCV 91 (80-100) fL MCH 30 (26-34) pg MCHC 33 (32-36) gm/dL RDW Coeff of Suzanne 14.7 (11.5-15.5) % Plt Count 247 (140-440) K/uL Neut % (Auto) 71.4 (42.0-72.0) % Lymph % (Auto) 22.4 (20-44) % [place] % (Auto) 5.2 (0.0-11.0) % Eos % (Auto) 0.8 (0.0-7.0) % Baso % (Auto) 0.1 (0.0-3.0) % Neut # (Auto) 7.60 H (1.7-7.0) K/uL Lymph # (Auto) 2.39 (0.90-2.90) K/uL [place] # (Auto) 0.60 (0.00-0.90) K/UL Eos # (Auto) 0.09 (0.00-0.50) K/uL Baso # (Auto) 0.01 (0.00-0.30) K/uL Abs Immat Gran (auto) 0.01 (0.00-0.30) K/uL Imm/Tot Granulo (auto) 0.1 % Sodium 135 (135-149) mmol/L Potassium 3.9 (3.6-5.1) mmol/L Chloride 99 (96-114) mmol/L Carbon Dioxide 26 (20-32) mmol/L Anion Gap 10 (7-15) mEq/L BUN 11 (7-30) mg/dL Creatinine 0.9 (0.5-1.5) mg/dL Estimated Creat Clear 69.44 Estimated GFR 104 ml/min Glucose 94 (60-115) mg/dL Calcium 8.5 (8.4-10.6) mg/dL Total Bilirubin 0.8 (0.1-1.5) mg/dL AST 25 (12-35) U/L ALT 27 (4-50) U/L Alkaline Phosphatase 94 (40-150) U/L Total Protein 7.8 (6.0-8.3) g/dL Albumin 4.2 (3.3-5.0) g/dL Lipase 131 (23-300) U/L Urine Color Yellow (Yellow) Urine Appearance Clear (Clear) Urine pH 6.0 (5.0-8.5) Ur Specific [place] 1.010 (1.000-1.030) Urine Protein Negative (Negative) Urine Glucose (UA) Negative (Negative) Urine Ketones Negative (Negative) Urine Blood 2+ A (Negative) Urine Nitrite Negative (Negative) Urine Bilirubin Negative (Negative) Urine Urobilinogen 0.2 (0.2-1.0) Ur Leukocyte Esterase Trace A (Negative) Urine RBC 2-5 A (0-2) Urine WBC 0-2 (0-5) Ur Squamous Epith Cells None (None-Few) Urine Bacteria None (None) POC Creatinine 0.9 (0.6-1.3) mg/dl Imaging Data CT scan abdomen and pelvis: Attestation: I have reviewed the pertinent imaging results. Radiologist's impression: No acute or worrisome findings on CT of the abdomen and pelvis. No specific CT explanation seen for right-sided flank pain. Please note that all CT scans at this facility use dose modulation, iterative reconstruction, and/or weight-based dosing when appropriate to reduce radiation dose to as low as reasonably achievable. Dictated by Elzia Conrad MD @ 06/28/2025 2:48:03 PM Discharge Plan Discharge Clinical Impression: Flank pain, left side Patient Disposition: Home, Self-Care Condition: Stable Instructions: Flank Pain (ED) Additional Instructions: I do believe you flank pain is musculoskeletal in origin. If it does persist I recommend following up with the primary care provider. Return to emergency department for new or worsening symptoms. Take Tylenol and ibuprofen as needed for pain. If that is not helping can use the oxycodone. Prescriptions: New oxycodone 5 mg tablet 5 mg PO Q6H PRN (Reason: pain) Qty: 12 0RF No Action vancomycin 125 mg Capsule 125 mg PO QID 35 Days Qty: 140 0RF Rx Instructions: To treat C Diff infection, 2 weeks beyond completion of treatment for the prostatitis ciprofloxacin HCl 250 mg tablet 250 mg PO BID 21 Days Qty: 42 0RF Rx Instructions: To eradicate severe prostatitis Follow Up/Referrals: Epi Blackwell MD [Primary Care Provider, Internal Medicine] Stand Alone Forms: [employer] Info Instructions
[2025-06-28 14:23] LABS: Appearance Urine Clear (Clear)
[2025-06-28 14:34] LABS: Creatinine, Point-of-Care* 0.9 mg/dl (0.6-1.3)
[2025-06-28 14:39] LABS: Hematocrit* 46.9 % (37.0-53.0); Hemoglobin* 15.4 gm/dL (13.5-17.5); Immature Granulocytes Abs Auto 0.01 K/uL (0.00-0.30); Immature Granulocytes Pct Auto 0.1 %; Lymphocytes Absolute Auto 2.39 K/uL (0.90-2.90); Mean Corpuscular HGB Conc 33 gm/dL (32-36); Mean Corpuscular Hemoglobin 30 pg (26-34); Mean Corpuscular Volume 91 fL (80-100); RDW Coefficient of Variation % 14.7 % (11.5-15.5); Red Blood Count* 5.16 m/uL (4.30-5.90); White Blood Count* 10.65 K/uL (4.50-11.00)
[2025-06-28 14:43] LABS: Slide Review Reflex No
[2025-06-28 14:51] LABS: Albumin* 4.2 g/dL (3.3-5.0); Chloride* 99 mmol/L (96-114); Potassium* 3.9 mmol/L (3.6-5.1); Sodium* 135 mmol/L (135-149)
[2025-06-28 14:54] LABS: Alanine Aminotransferase* 27 U/L (4-50); Alkaline Phosphatase* 94 U/L (40-150); Anion Gap 10 mEq/L (7-15); Aspartate Amino Transferase* 25 U/L (12-35); Bilirubin Total* 0.8 mg/dL (0.1-1.5); Blood Urea Nitrogen* 11 mg/dL (7-30); Calcium* 8.5 mg/dL (8.4-10.6); Carbon Dioxide* 26 mmol/L (20-32); Creatinine* 0.9 mg/dL (0.5-1.5); Est. Creatinine Clearance* 69.44; Estimated Glomerular Filt Rate 104 ml/min; Glucose* 94 mg/dL (60-115); Total Protein* 7.8 g/dL (6.0-8.3)
== END 2025-06-28 16:15 | disposition home or self-care (01) ==
PROVIDERS: Emergency Provider Student in an Organized Health Care Education/Training Program; PCP Internal Medicine
DX: R10.A1 Flank pain, right side (principal)
CPT/HCPCS: 36415; 74177; 80053; 81001; 82565; 83690; 85025; 87086; 99284; 99285; Q9967

== ENCOUNTER 2025-07-06 10:35 | Outpatient (CLI) | payer BC, SELFPAY | END 2025-07-06 10:36 | disposition home or self-care (01) | LOC: NFLDREF 10:36 | PROVIDERS: PCP Internal Medicine; Visit Provider Internal Medicine | DX: R31.9 Hematuria, unspecified (principal) | CPT/HCPCS: 87086; G0103 ==

== ENCOUNTER 2025-07-25 12:48 | Outpatient (CLI) | payer BC, SELFPAY ==
--- NOTE | 2025-07-25 13:41 | P.ANES_ITS ---
Anesthesia Charges Start Date/Time Anesthesia Start Date: 07/25/25 Anesthesia Start Time: 13:22 Stop Date/Time Anesthesia Stop Date: 07/25/25 Anesthesia Stop Time: 13:40 Coding CPT Codes CPT Codes: ANES LWR INTST NDSC NOS - 97699 ([id number]) P3 - PATIENT W/SEVERE SYS DISEASE, QX - DISTRICT SERVICE MANAGER SVC W/ MD MED DIRECTION, QK - INSTALLATION ENGINEER 2-4 CNCRNT ANES PROC
--- NOTE | 2025-07-25 13:41 | W.ANESCHARGE ---
Anesthesia Charges Start Date/Time Anesthesia Start Date: 07/25/25 Anesthesia Start Time: 13:22 Stop Date/Time Anesthesia Stop Date: 07/25/25 Anesthesia Stop Time: 13:40 Coding CPT Codes CPT Codes: ANES LWR INTST NDSC NOS - 91789 ([id number]) P3 - PATIENT W/SEVERE SYS DISEASE, QX - FOREST RANGER TECHNICIAN SVC W/ MD MED DIRECTION, QK - PUGGER HELPER 2-4 CNCRNT ANES PROC
--- NOTE | 2025-07-25 13:50 | P.ANES_ITS ---
Anesthesia Charges Start Date/Time Anesthesia Start Date: 07/25/25 Anesthesia Start Time: 13:22 Stop Date/Time Anesthesia Stop Date: 07/25/25 Anesthesia Stop Time: 13:40 Coding CPT Codes CPT Codes: ANES LWR INTST NDSC NOS - 07417 ([id number]) QK - MILK HANDLER 2-4 CNCRNT ANES PROC, QX - ASSEMBLER CARBON BRUSHES SVC W/ MD MED DIRECTION, P3 - PATIENT W/SEVERE SYS DISEASE
--- NOTE | 2025-07-25 13:50 | W.ANESCHARGE ---
Anesthesia Charges Start Date/Time Anesthesia Start Date: 07/25/25 Anesthesia Start Time: 13:22 Stop Date/Time Anesthesia Stop Date: 07/25/25 Anesthesia Stop Time: 13:40 Coding CPT Codes CPT Codes: ANES LWR INTST NDSC NOS - 86613 ([id number]) QK - INCLUSION INTERNSHIP 2-4 CNCRNT ANES PROC, QX - DIGITAL OPERATIONS ANALYST SVC W/ MD MED DIRECTION, P3 - PATIENT W/SEVERE SYS DISEASE
== END 2025-07-25 12:49 | disposition home or self-care (01) ==
LOC: OP CLINIC 12:50
PROVIDERS: PCP Internal Medicine; Visit Provider Internal Medicine
DX: Z12.11 Encounter for screening for malignant neoplasm of colon (principal); D12.5 Benign neoplasm of sigmoid colon; K64.8 Other hemorrhoids
CPT/HCPCS: 00811; 00812; 45380; J2704